=== PATIENT | female | born 1955 | race Caucasian/White ===

== ENCOUNTER 2017-04-14 17:35 | Emergency (ER) | payer OTHER ==
[2017-04-14 17:43] VITALS: BP 134/73; PULSE 104; RESP 18; TEMP 97.9
[2017-04-14] MEDS ORDERED: ACETAMINOPHEN TAB 500 MG TAB PO STA (17:53)
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
== END 2017-04-14 18:35 | disposition home or self-care (01) ==
LOC: EC 17:35
DX: S41.112A Laceration without foreign body of left upper arm, initial encounter (principal); S41.111A Laceration without foreign body of right upper arm, initial encounter; S01.511A Laceration without foreign body of lip, initial encounter; S09.90XA Unspecified injury of head, initial encounter; I48.91 Unspecified atrial fibrillation; E11.9 Type 2 diabetes mellitus without complications; Z79.4 Long term (current) use of insulin; Z79.899 Other long term (current) drug therapy; Z88.5 Allergy status to narcotic agent; Z88.8 Allergy status to other drugs, medicaments and biological substances; Y04.8XXA Assault by other bodily force, initial encounter
CPT/HCPCS: 70450; 99284

== ENCOUNTER 2017-06-07 06:14 | Day surgery (SDC) | payer OTHER ==
[2017-06-01 12:16] VITALS: BMI 32.1
[~2017-06-07 06:14] MED LIST: HYDROmorphone 1 MG/ML 1 ML SYRINGE IVP PRN; LACTATED RINGERS 1,000 ML IV SCH
[2017-06-07 07:21] VITALS: TEMP 97.2
[2017-06-07] MEDS ORDERED: LACTATED RINGERS 1,000 ML IV ONE (07:24)
[2017-06-07 07:30] LABS: Glucose,Whole Blood 109 mg/dL (75-99)
[2017-06-07] MEDS ORDERED: PROPOFOL 10 MG/ML 20 ML VIAL IV ONE (07:49)
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
--- NOTE | 2017-06-07 08:13 | P.OP ---
Date of Procedure: 06/07/17 Preoperative Diagnosis: Diarrhea, abdominal pain Postoperative Diagnosis: Normal colonoscopy Random rectal biopsy Procedure(s) Performed: Colonoscopy Implants: Anesthesia: ZION Surgeon: Ender Nelson Pathology: other (Rectum) Condition: stable Disposition: PACU Indications for Procedure: Operative Findings: Description of Procedure: The patient's placed on the endoscopy table lateral position she received IV sedation. Digital rectal exam was performed which revealed no abnormalities. The flexible colonoscope was then placed patient anus passed throughout the entire colon. The ileocecal valve was visualized. The cecum, ascending and transverse colon appeared normal. The descending and; appeared normal. Scope was then brought back the rectum and this question was information mucosa looked mildly irritated. A biopsies performed. The scope was then withdrawn remainder the rectum appeared normal. Scope was withdrawn for patient.
[2017-06-07 08:39] VITALS: RESP 16
[2017-06-07 08:48] VITALS: BP 108/74; PULSE 51
[2017-06-07 09:05] LABS: Glucose,Whole Blood 91 mg/dL (75-99)
== END 2017-06-07 09:27 | disposition home or self-care (01) ==
LOC: ORWHC2ENDO 06:14
PROVIDERS: ATTEND Surgery
DX: R19.7 Diarrhea, unspecified (principal); R10.9 Unspecified abdominal pain; I48.91 Unspecified atrial fibrillation; E11.9 Type 2 diabetes mellitus without complications; Z79.4 Long term (current) use of insulin; Z79.899 Other long term (current) drug therapy; Z88.5 Allergy status to narcotic agent; Z91.09 Other allergy status, other than to drugs and biological substances
CPT/HCPCS: 88305; 45380; J2704

== ENCOUNTER → 2018-09-25 | Outpatient (CLI) | payer OTHER ==
--- NOTE | 2018-09-27 08:51 | MM ---
Reason for exam: screening (asymptomatic). Last mammogram was performed 5 years and 1 month ago. History: Patient is postmenopausal. Physical Findings: A clinical breast exam by your physician is recommended on an annual basis and results should be correlated with mammographic findings. MG Screening Mammo w CAD Bilateral CC and MLO view(s) were taken. Prior study comparison: August 26, 2013, bilateral digital screening mammo w/CAD. There are scattered fibroglandular densities. There is chronic nodularity in the right breast. Benign secreotry calcifications bilaterally. No significant changes when compared with prior studies. ASSESSMENT: Benign, BI-RAD 2 RECOMMENDATION: Routine screening mammogram of both breasts in 1 year.
== END | disposition home or self-care (01) ==
LOC: RADMAMWWP 16:11
PROVIDERS: ATTEND Family Medicine
DX: Z12.31 Encounter for screening mammogram for malignant neoplasm of breast (principal)
CPT/HCPCS: 77067

== ENCOUNTER 2019-10-09 13:39 | Inpatient (IN) | payer OTHER ==
[2019-10-09] MEDS ORDERED: SODIUM CHLORIDE 0.9% 1,000 ML IV ONE (13:54)
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
[2019-10-09 14:24] LABS: Glucose,Whole Blood 277 mg/dL (75-99)
[2019-10-09 14:51] LABS: Appearance,Urine Clear (Clear); Bilirubin,Urine Negative (Negative); Blood,Urine Negative (Negative); Color,Urine Yellow; Glucose,Urine (UA) 4+ (Negative); Ketones,Urine Negative (Negative); Leukocyte Esterase,Urine Trace (Negative); Mucus,Urine Rare /hpf; Nitrite,Urine Negative (Negative); PH, Urine 5.5 (5.0-8.0); Protein,Urine Negative (Negative); RBC,Urine <1 /hpf (0-5); Specific Gravity,Urine 1.014 (1.001-1.035); Squamous Epithelial Cell,Urine <1 /hpf (0-4); Urobilinogen,Urine <2.0 mg/dL (<2.0); WBC,Urine 2 /hpf (0-5)
--- NOTE | 2019-10-09 14:55 | XR ---
EXAMINATION TYPE: XR chest 2V DATE OF EXAM: 10/09/2019 COMPARISON: Prior chest x-ray 04/09/2018 HISTORY: Difficulty breathing, dizziness and vomiting TECHNIQUE: Frontal and lateral views of the chest are obtained. FINDINGS: The patient is rotated. There are overlying cardiac leads. Surgical clips are present right upper quadrant. The aorta is dense. There is increased attenuation present at the probable left lung base. No pneumothorax or pleural effusion. Heart size is normal. IMPRESSION: Possible left lower lobe pneumonia.
[2019-10-09 15:34] LABS: Basophils # (A) 0.2 k/uL (0-0.2); Basophils % (A) 1 %; Eosinophils # (A) 0.1 k/uL (0-0.7); Eosinophils % (A) 1 %; HCT 45.9 % (34.0-46.0); HGB 14.7 gm/dL (11.4-16.0); Lymphocytes # (A) 0.4 k/uL (1.0-4.8); Lymphocytes % (A) 2 %; MCH 27.6 pg (25.0-35.0); MCHC 32.1 g/dL (31.0-37.0); MCV 85.9 fL (80.0-100.0); Mean Platelet Volume 8.1; Monocytes # (A) 0.7 k/uL (0-1.0); Monocytes % (A) 4 %; Neutrophils % (A) 93 %; Platelet Count 306 k/uL (150-450); RBC 5.34 m/uL (3.80-5.40); WBC 20.4 k/uL (3.8-10.6)
[2019-10-09] MEDS ORDERED: cefTRIAXone IN SWFI 1,000 MG/10 ML SYRINGE IVP STA (15:37)
[2019-10-09 15:44] LABS: ALT 19 U/L (4-34); AST 29 U/L (14-36); African American GFR (CKD) >90 (>60 ml/min/1.73 sqM); Albumin 3.6 g/dL (3.5-5.0); Alkaline Phosphatase 83 U/L (38-126); Anion Gap 9 mmol/L; Blood Urea Nitrogen 7 mg/dL (7-17); Calcium 9.4 mg/dL (8.4-10.2); Carbon Dioxide 22 mmol/L (22-30); Chloride 104 mmol/L (98-107); Glucose 243 mg/dL (74-99); Non-African American GFR(CKD) >90 (>60 ml/min/1.73 sqM); Sodium 135 mmol/L (137-145); Total Bilirubin 0.5 mg/dL (0.2-1.3); Total Protein 6.5 g/dL (6.3-8.2)
[2019-10-09] MEDS ORDERED: AZITHROMYCIN 500 MG in SODIUM CHLORIDE 0.9% 250 ML IVPB STA (16:19)
[2019-10-09] MEDS ORDERED: PNEUMONIA PROTOCOL UTILIZED 1 EACH MISC PO PRN (16:19)
[2019-10-09 20:07] LABS: Glucose,Whole Blood 166 mg/dL (75-99)
[2019-10-09] MEDS: INSULIN DETEMIR (LEVEMIR) 100 UNIT/ML SYR SQ SCH (23:21)
[2019-10-09] MEDS: TOPIRAMATE 100 MG TAB PO SCH (23:21)
[2019-10-09] MEDS: metFORMIN 500 MG TAB PO SCH (23:21)
[2019-10-10 06:58] LABS: Glucose,Whole Blood 69 mg/dL (75-99)
[2019-10-10 07:21] LABS: Glucose,Whole Blood 59 mg/dL (75-99)
[2019-10-10] MEDS ORDERED: INSULIN ASPART (NovoLOG) 100 UNIT/ML VIAL SQ SCH (07:30)
[2019-10-10 07:45] LABS: Glucose,Whole Blood 79 mg/dL (75-99)
[2019-10-10] MEDS: metFORMIN 500 MG TAB PO SCH ×2 (08:23→20:37)
[2019-10-10] MEDS: TOPIRAMATE 100 MG TAB PO SCH ×2 (08:39→20:37)
--- NOTE | 2019-10-10 10:46 | XR ---
EXAMINATION TYPE: XR chest 2V DATE OF EXAM: 10/10/2019 COMPARISON: Chest x-ray 10/09/2019 HISTORY: Pneumonia TECHNIQUE: Frontal and lateral views of the chest are obtained. FINDINGS: Airspace disease persists at the right lung base. No evident pneumothorax or pleural effus ion. Aorta is dense. Heart size is stable. Bone mineralization unchanged. IMPRESSION: Correlate for right lower lobe pneumonia
[2019-10-10 11:27] LABS: Glucose,Whole Blood 185 mg/dL (75-99)
[2019-10-10] MEDS: INSULIN ASPART (NovoLOG) 100 UNIT/ML VIAL SQ SCH ×3 (11:46→20:38)
[2019-10-10] MEDS ORDERED: IPRATROPIUM-ALBUTEROL 3 ML NEB INHALATION PRN (16:50)
[2019-10-10] MEDS: AZITHROMYCIN 500 MG TAB PO SCH (16:55)
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
[2019-10-10] MEDS: PANTOPRAZOLE 40 MG/10 ML VIAL IVP SCH (16:58)
[2019-10-10 17:20] LABS: Glucose,Whole Blood 73 mg/dL (75-99)
[2019-10-10 19:52] LABS: Glucose,Whole Blood 225 mg/dL (75-99)
[2019-10-10] MEDS: INSULIN DETEMIR (LEVEMIR) 100 UNIT/ML SYR SQ SCH (20:38)
[2019-10-10] MEDS: IPRATROPIUM-ALBUTEROL 3 ML NEB INHALATION SCH (21:27)
[2019-10-11 02:16] LABS: Glucose,Whole Blood 154 mg/dL (75-99)
[2019-10-11 06:51] LABS: Glucose,Whole Blood 68 mg/dL (75-99)
[2019-10-11 07:16] LABS: Glucose,Whole Blood 101 mg/dL (75-99)
[2019-10-11] MEDS: INSULIN ASPART (NovoLOG) 100 UNIT/ML VIAL SQ SCH ×4 (07:21→20:49)
[2019-10-11] MEDS: PANTOPRAZOLE 40 MG/10 ML VIAL IVP SCH (07:21)
[2019-10-11] MEDS: metFORMIN 500 MG TAB PO SCH ×2 (07:22→20:49)
[2019-10-11] MEDS: TOPIRAMATE 100 MG TAB PO SCH ×2 (07:23→20:49)
[2019-10-11 07:32] LABS: African American GFR (CKD) >90 (>60 ml/min/1.73 sqM); Anion Gap 5 mmol/L; Blood Urea Nitrogen 5 mg/dL (7-17); Calcium 8.7 mg/dL (8.4-10.2); Carbon Dioxide 22 mmol/L (22-30); Chloride 112 mmol/L (98-107); Glucose 82 mg/dL (74-99); Non-African American GFR(CKD) >90 (>60 ml/min/1.73 sqM); Potassium 3.8 mmol/L (3.5-5.1); Sodium 139 mmol/L (137-145)
[2019-10-11 07:50] LABS: Basophils % (A) 0 %; Eosinophils # (A) 0.1 k/uL (0-0.7); Eosinophils % (A) 1 %; HGB 11.8 gm/dL (11.4-16.0); Hypochromasia Slight; Lymphocytes # (A) 0.9 k/uL (1.0-4.8); Lymphocytes % (A) 7 %; MCH 28.3 pg (25.0-35.0); MCHC 32.8 g/dL (31.0-37.0); MCV 86.5 fL (80.0-100.0); Mean Platelet Volume 7.7; Monocytes # (A) 0.6 k/uL (0-1.0); Monocytes % (A) 5 %; Neutrophils # (A) 10.3 k/uL (1.3-7.7); Neutrophils % (A) 86 %; Platelet Count 257 k/uL (150-450); RBC 4.17 m/uL (3.80-5.40); RDW 14.5 % (11.5-15.5); WBC 12.1 k/uL (3.8-10.6)
[2019-10-11] MEDS: IPRATROPIUM-ALBUTEROL 3 ML NEB INHALATION SCH ×4 (08:59→19:54)
[2019-10-11 11:13] LABS: Glucose,Whole Blood 325 mg/dL (75-99)
[2019-10-11 11:17] LABS: Hemoglobin A1C 10.7 % (4.0-6.0)
[2019-10-11 12:49] VITALS: BMI 27.9
[2019-10-11] MEDS: AZITHROMYCIN 500 MG TAB PO SCH (16:14)
[2019-10-11 17:18] LABS: Glucose,Whole Blood 251 mg/dL (75-99)
[2019-10-11] MEDS ORDERED: methylPREDNISolone SOD SUCCI 125 MG/2 ML VIAL IV SCH (18:00)
[2019-10-11] MEDS: BUDESONIDE 0.5 MG/2 ML NEBU INHALATION SCH (19:54)
[2019-10-11 20:40] LABS: Glucose,Whole Blood 248 mg/dL (75-99)
[2019-10-11] MEDS: FAMOTIDINE 20 MG/2 ML VIAL IV SCH (20:48)
[2019-10-11] MEDS: HEPARIN SODIUM,PORCINE 5,000 UNIT/ML 1 ML VIAL SQ SCH (20:49)
[2019-10-11] MEDS: INSULIN DETEMIR (LEVEMIR) 100 UNIT/ML SYR SQ SCH (20:49)
--- NOTE | 2019-10-11 22:35 | CONS ---
CONSULTATION Tiana Elizondo is a 64-year-old female who presented to the ED at [facility] with a history of cough. She had been exposed to a toddler who may have had the flu. When she came to the ER, she had a chest x-ray done which showed evidence of lower zone infiltrate consistent with pneumonia. She also had a nonproductive cough. She has a history of diabetes mellitus and her blood sugars at home were over 500. She denied any discrete fever when I asked about it. She is doing significantly better today compared to yesterday. She has no chest pain. PAST MEDICAL HISTORY: Positive for diabetes mellitus, seizure disorder, arthritis, previous hysterectomy, tonsillectomy. No clear history of asthma or COPD. SOCIAL HISTORY: Patient is a never smoker. Does not drink alcohol excessively. FAMILY HISTORY: Positive for cancer in her father. MEDICATIONS: Prior to admission were insulin, Topamax, and metformin. ALLERGIC: TO CODEINE AND IODINE. PHYSICAL EXAMINATION: She was lying in bed. Respiratory rate is 18, pulse rate 91, O2 saturation on 2 L by nasal cannula is 95%. Blood pressure is 104/59, temperature is 98.8. When she came to the ER, her T-max had been 100 degrees Fahrenheit. HEENT: Unremarkable. Chest reveals scattered crackles in the bases. No wheeze. Cardiovascular system is S1, S2. Abdomen is soft. There is no pedal edema. Chest x-ray shows evidence of airspace disease in the right lung base. LABS: Reveal a white count of 12.1, hemoglobin of 11.8 with 10.3 1000 neutrophils. Sodium 139, potassium 3.8, chloride 112, bicarb 22, BUN 5, creatinine 0.55. IMPRESSION: At this time: 1. Right lower lobe pneumonia. 2. Diabetes mellitus. At this point in time, keep her on Rocephin and azithromycin. Add inhaled steroid. Continue bronchodilators. If she starts to wheeze, she may require a short course of steroids. Continue her on insulin and her antiseizure medications. She was counseled regarding her condition and this approach. MMODL / IJN: [id number] /
[2019-10-12 02:03] LABS: Glucose,Whole Blood 169 mg/dL (75-99)
[2019-10-12 07:07] LABS: Glucose,Whole Blood 81 mg/dL (75-99)
--- NOTE | 2019-10-12 08:23 | PN ---
PROGRESS NOTE SUBJECTIVE: 64-year-old white female, community-acquired pneumonia, tracheobronchitis, COPD exacerbation. Cardiovascular S1-S2. Lungs scattered wheeze and rhonchi. Hematology negative Homans. Psych fair mood and affect. ASSESSMENT: 1. Chronic obstructive pulmonary disease exacerbation. 2. Community-acquired pneumonia. 3. Acute hypoxemic respiratory distress. Continue with current IV antibiotics, IV steroids, updraft treatments. Possible discharge home in next 24 to 48 hours. MMODL / IJN: [id number] /
[2019-10-12] MEDS: BUDESONIDE 0.5 MG/2 ML NEBU INHALATION SCH (08:31)
[2019-10-12] MEDS: IPRATROPIUM-ALBUTEROL 3 ML NEB INHALATION SCH ×2 (08:31→11:57)
[2019-10-12] MEDS: INSULIN ASPART (NovoLOG) 100 UNIT/ML VIAL SQ SCH ×2 (08:39→12:35)
[2019-10-12] MEDS ORDERED: PANTOPRAZOLE 40 MG TABLET PO SCH (09:00)
[2019-10-12] MEDS: FAMOTIDINE 20 MG/2 ML VIAL IV SCH (09:20)
[2019-10-12] MEDS: HEPARIN SODIUM,PORCINE 5,000 UNIT/ML 1 ML VIAL SQ SCH (09:20)
[2019-10-12] MEDS: TOPIRAMATE 100 MG TAB PO SCH (09:20)
[2019-10-12] MEDS: metFORMIN 500 MG TAB PO SCH (09:20)
[2019-10-12 11:05] LABS: Glucose,Whole Blood 310 mg/dL (75-99)
[2019-10-12 11:52] VITALS: BP 114/69; RESP 18; TEMP 97.8
[2019-10-12 12:07] VITALS: PULSE 96
--- NOTE | 2019-10-12 17:36 | PN ---
PROGRESS NOTE DATE OF SERVICE: October 12, 2019. She was hemodynamically stable. She is less short of breath. She does not have much of a cough. By the chest is clear. Cardiovascular is S1, S2. Abdomen is soft. There is no edema. IMPRESSION: At this time: Community-acquired pneumonia. Increase her activity level and discharge planning on antibiotics. care. MMODL / IJN: [id number] /
== END 2019-10-12 12:50 | disposition home or self-care (01) | DRG 193 ==
LOC: EC 13:39 → INTOOBSV 16:19 → 5NMEDONC 16:19 → OBSVTOIN 10-11 15:24
PROVIDERS: ADMIT Family Medicine; ATTEND Family Medicine
DX: J18.9 Pneumonia, unspecified organism (principal); J96.01 Acute respiratory failure with hypoxia; J44.0 Chronic obstructive pulmonary disease with (acute) lower respiratory infection; J44.1 Chronic obstructive pulmonary disease with (acute) exacerbation; M19.90 Unspecified osteoarthritis, unspecified site; I48.91 Unspecified atrial fibrillation; G40.909 Epilepsy, unspecified, not intractable, without status epilepticus; E11.65 Type 2 diabetes mellitus with hyperglycemia; F32.9 Major depressive disorder, single episode, unspecified; Z88.5 Allergy status to narcotic agent; Z88.8 Allergy status to other drugs, medicaments and biological substances; Z79.4 Long term (current) use of insulin; Z79.1 Long term (current) use of non-steroidal anti-inflammatories (NSAID); Z90.49 Acquired absence of other specified parts of digestive tract; Z79.899 Other long term (current) drug therapy; Z90.710 Acquired absence of both cervix and uterus; Z90.89 Acquired absence of other organs; Z90.722 Acquired absence of ovaries, bilateral; Z90.79 Acquired absence of other genital organ(s); Z98.890 Other specified postprocedural states; Z80.9 Family history of malignant neoplasm, unspecified
CPT/HCPCS: 36415; 71046; 80048; 80053; 81001; 82009; 83036; 83605; 85025; 85379; 87040; 87502; 93005; 94640; 94760; 96361; 96365; 96366; 96375; 99285

== ENCOUNTER 2019-12-27 05:53 | Inpatient (IN) | payer OTHER ==
[2019-12-27] MEDS ORDERED: ONDANSETRON 4 MG/2 ML VIAL IVP STA (06:26)
[2019-12-27] MEDS ORDERED: HYDROmorphone 0.5 MG/0.5 ML SYRINGE IVP STA (06:26)
--- NOTE | 2019-12-27 06:29 | ED ---
Fall HPI - General Chief Complaint: Fall Stated Complaint: Fall,Leg Pain Time Seen by Provider: 12/27/19 06:05 Source: patient, RN notes reviewed Mode of arrival: ambulatory Limitations: no limitations - History of Present Illness Initial Comments: This a 64-year-old female presents emergency department via EMS chief complaint of left hip, left leg pain. Patient states that she tripped over a pillow falling into the wall. Patient states she has severe left hip and left thigh pain. Patient denies any significant head injury no loss conscious no current headache, neck pain, upper extremity or back pain. Patient states she's had no prior orthopedic surgeries. Patient states pain is 910 at this time. Patient has not taken anything for discomfort. - Related Data Home Medications Medication Instructions Recorded Confirmed Insulin Glargine [Lantus] 25 unit SQ HS 04/14/17 10/09/19 Insulin Lispro [Admelog] 7 unit SQ QID 10/09/19 10/09/19 Topiramate [Topamax] 100 mg PO BID 10/09/19 10/09/19 metFORMIN HCL [Glucophage] 500 mg PO BID 10/09/19 10/09/19 Allergies Allergy/AdvReac Type Severity Reaction Status Date / Time codeine Allergy Nausea & Verified 12/27/19 06:00 Vomiting iodine Allergy Anaphylaxis Verified 12/27/19 06:00 Iodine and Iodide Containing Allergy Anaphylaxis Verified 12/27/19 06:00 Produc Review of Systems ROS Statement: Those systems with pertinent positive or pertinent negative responses have been documented in the HPI. ROS Other: All systems not noted in ROS Statement are negative. Past Medical History Past Medical History: Diabetes Mellitus, Seizure Disorder Additional Past Medical History / Comment(s): SEIZURE 05/23/17, ELECTROLYTES WERE ABN. ONGOING DIARRHEA, W/ LOW K+. PAIN IN JOINTS. History of Any Multi-Drug Resistant Organisms: None Reported Past Surgical History: Cholecystectomy, Hysterectomy, Tonsillectomy Additional Past Surgical History / Comment(s): BSO. Past Anesthesia/Blood Transfusion Reactions: Previous Problems w/ Anesthesia, Motion Sickness Additional Past Anesthesia/Blood Transfusion Reaction / Comment(s): AWAKENED DURING SURGERY X1. Past Psychological History: Depression Smoking Status: Never smoker Past Alcohol Use History: None Reported Past Drug Use History: None Reported - Past Family History Father Family Medical History: Cancer General Exam Limitations: no limitations General appearance: alert, in no apparent distress Head exam: Present: atraumatic, normocephalic, normal inspection Eye exam: Present: normal appearance, PERRL, EOMI. Absent: scleral icterus, conjunctival injection, periorbital swelling ENT exam: Present: normal exam, normal oropharynx, mucous membranes moist Neck exam: Present: normal inspection, full ROM. Absent: tenderness, meningismus, lymphadenopathy Respiratory exam: Present: normal lung sounds bilaterally. Absent: respiratory distress, wheezes, rales, rhonchi, stridor Cardiovascular Exam: Present: regular rate, normal rhythm, normal heart sounds. Absent: systolic murmur, diastolic murmur, rubs, gallop, clicks Extremities exam: Present: other (Left hip left upper leg there is moderate tenderness palpation, no obvious deformity there is very limited range of motion secondary pain leg is neurovascularly intact) Neurological exam: Present: alert, oriented X3, CN II-XII intact, reflexes normal. Absent: motor sensory deficit Skin exam: Present: warm, dry, intact, normal color. Absent: rash Course Vital Signs 12/27/19 05:57 Temperature 98.1 F Pulse Rate 89 Respiratory 20 Rate Blood Pressure 132/85 O2 Sat by Pulse 100 Oximetry Medical Decision Making - Medical Decision Making Case discussed with Dr. Vazquez who accepts admission will consult to Dr. Arredondo for medical clearance. Disposition Clinical Impression: Fall, Closed left hip fracture Disposition: ADMITTED IP TO THIS [facility] Condition: Fair Referrals: Manuel Castillo MD [Primary Care Provider] - 1-2 days
--- NOTE | 2019-12-27 06:44 | XR ---
EXAMINATION TYPE: XR pelvis AP view DATE OF EXAM: 12/27/2019 COMPARISON: NONE HISTORY: Fall. Pain. TECHNIQUE: FINDINGS: There is acute subcapital slightly impacted fracture left femur. There is no dislocation. P elvic ring is intact. IMPRESSION: Acute fracture of the subcapital left femur.
--- NOTE | 2019-12-27 06:45 | XR ---
EXAMINATION TYPE: XR chest 1V portable DATE OF EXAM: 12/27/2019 COMPARISON: 10/10/2019 HISTORY: Trauma. Pain. TECHNIQUE: Single view FINDINGS: Heart is normal. Lungs are clear of infiltrate. There is no pleural effusion. Costophrenic angles are clear. Thoracic aorta is atheromatous. IMPRESSION: No active cardiopulmonary disease. Normal heart. There is clearing of the mild atelectasi s right lung base compared to old exam.
--- NOTE | 2019-12-27 06:47 | XR ---
EXAMINATION TYPE: XR femur LT DATE OF EXAM: 12/27/2019 COMPARISON: NONE HISTORY: Pain TECHNIQUE: 4 views FINDINGS: There is acute impacted subcapital fracture left femur. Knee joint appears intact. There is vascular calcification. Acetabulum is intact. IMPRESSION: Acute subcapital fracture left femur.
[2019-12-27] MEDS ORDERED: ONDANSETRON 4 MG/2 ML VIAL IVP PRN (06:50)
[2019-12-27] MEDS ORDERED: NALOXONE 0.4 MG/ML 1 ML VIAL IV PRN (06:50)
[2019-12-27] MEDS ORDERED: HYDROmorphone 1 MG/ML 1 ML SYRINGE IVP PRN (06:50)
[2019-12-27 07:15] LABS: Basophils % (A) 0 %; Eosinophils # (A) 0.1 k/uL (0-0.7); Eosinophils % (A) 1 %; HCT 39.5 % (34.0-46.0); HGB 12.7 gm/dL (11.4-16.0); Lymphocytes # (A) 0.8 k/uL (1.0-4.8); Lymphocytes % (A) 7 %; MCH 27.5 pg (25.0-35.0); MCHC 32.2 g/dL (31.0-37.0); MCV 85.5 fL (80.0-100.0); Mean Platelet Volume 8.1; Monocytes # (A) 0.7 k/uL (0-1.0); Monocytes % (A) 6 %; Neutrophils # (A) 9.6 k/uL (1.3-7.7); Neutrophils % (A) 86 %; Platelet Count 236 k/uL (150-450); RBC 4.63 m/uL (3.80-5.40); RDW 14.9 % (11.5-15.5); WBC 11.2 k/uL (3.8-10.6)
[2019-12-27 07:27] LABS: ALT 38 U/L (4-34); AST 50 U/L (14-36); African American GFR (CKD) >90 (>60 ml/min/1.73 sqM); Albumin 3.5 g/dL (3.5-5.0); Alkaline Phosphatase 103 U/L (38-126); Anion Gap 6 mmol/L; Blood Urea Nitrogen 11 mg/dL (7-17); Calcium 9.6 mg/dL (8.4-10.2); Carbon Dioxide 22 mmol/L (22-30); Chloride 110 mmol/L (98-107); Glucose 156 mg/dL (74-99); Non-African American GFR(CKD) >90 (>60 ml/min/1.73 sqM); Potassium 3.6 mmol/L (3.5-5.1); Sodium 138 mmol/L (137-145); Total Bilirubin 0.4 mg/dL (0.2-1.3); Total Protein 6.2 g/dL (6.3-8.2)
[2019-12-27 07:40] LABS: INR 0.9 (<1.2); Prothrombin Time 9.3 sec (9.0-12.0)
--- NOTE | 2019-12-27 07:55 | CT ---
EXAMINATION TYPE: CT hip LT wo con DATE OF EXAM: 12/27/2019 COMPARISON: Pelvic and left femur x-ray from earlier today. HISTORY: Trip and fall injury last night. Left hip pain. CT DLP: 1078.6 mGycm Automated exposure control for dose reduction was used. FINDINGS: As suspected on x-rays there is confirmation of acute displaced comminuted subcapital fracture left p roximal femur. No joint dislocation. Moderate joint space loss is present. There are 2 left pelvic anterior wall hernias containing fat and tiny mesenteric vessels. Mild to mod erate distention of bladder. Vascular calcification is seen. IMPRESSION: As above, confirmation of acute comminuted minimally displaced subcapital fracture left p roximal femur.
[2019-12-27 08:05] LABS: Partial Thromboplastin Time 21.3 sec (22.0-30.0)
[2019-12-27 09:06] LABS: Glucose,Whole Blood 162 mg/dL (75-99)
[2019-12-27] MEDS: INSULIN ASPART (NovoLOG) 100 UNIT/ML VIAL SQ SCH ×4 (09:29→21:51)
[2019-12-27] MEDS: HYDROmorphone 0.5 MG/0.5 ML SYRINGE IVP PRN ×3 (09:30→19:39)
--- NOTE | 2019-12-27 10:11 | P.HPOR ---
History of Present Illness H&P Date: 12/27/19 Chief Complaint: Left hip pain. Status post fall. This is a 64-year-old female who presented to the emergency department early this morning with complaint of left hip pain. The patient states that she tripped over her pillow and fell into the wall at home. She states that she did have immediate hip pain but was able to ambulate. She states that she thought she just had a sprain of her hip. He became increasingly difficult to ambulate over the following few hours. She then called her daughter to bring her to the hospital. She states that she did bump her head when she fell and has a bit of a headache but no neck pain. On exam and x-ray she is noted to have a com minuted femoral neck fracture of the left hip. She is admitted to our service for surgical intervention and care. The patient denies any history of cancer or metastatic disease. She is diabetic and has history of epilepsy with grand mal seizure. The patient works as a [employer] WORK[employer]. Past Medical History Past Medical History: Diabetes Mellitus, Seizure Disorder Additional Past Medical History / Comment(s): SEIZURE 05/23/17, ELECTROLYTES WERE ABN. ONGOING DIARRHEA, W/ LOW K+. PAIN IN JOINTS. History of Any Multi-Drug Resistant Organisms: None Reported Past Surgical History: Cholecystectomy, Hysterectomy, Tonsillectomy Additional Past Surgical History / Comment(s): BSO. Past Anesthesia/Blood Transfusion Reactions: Previous Problems w/ Anesthesia, Motion Sickness Additional Past Anesthesia/Blood Transfusion Reaction / Comment(s): AWAKENED DURING SURGERY X1. Past Psychological History: Depression Smoking Status: Never smoker Past Alcohol Use History: None Reported Past Drug Use History: None Reported - Past Family History Father Family Medical History: Cancer Medications and Allergies Home Medications Medication Instructions Recorded Confirmed Type Insulin Glargine [Lantus] 25 unit SQ HS 04/14/17 10/09/19 History Insulin Lispro [Admelog] 7 unit SQ QID 10/09/19 10/09/19 History Topiramate [Topamax] 100 mg PO BID 10/09/19 10/09/19 History metFORMIN HCL [Glucophage] 500 mg PO BID 10/09/19 10/09/19 History Allergies Allergy/AdvReac Type Severity Reaction Status Date / Time codeine Allergy Nausea & Verified 12/27/19 06:00 Vomiting iodine Allergy Anaphylaxis Verified 12/27/19 06:00 Iodine and Iodide Containing Allergy Anaphylaxis Verified 12/27/19 06:00 Produc Physical Examination This is a pleasant 64-year-old female in no acute distress. She is alert and oriented 3. Exam of the head neck reveal no obvious deformity. She has full cervical spine motion without difficulty or pain. There is no tenderness to the cervical spine or paraspinal musculature. Exam of the upper extremities reveals no obvious deformity. She has full shoulder, elbow, wrist and finger motion bilaterally. Neurovascular status to the upper extremities is intact. Exam of the lower extremities reveals shortening and external rotation to the left leg. There is pain with any motion of the left hip. She has full foot and ankle motion bilaterally. Neurovascular status to the lower extremities is intact. Results X-ray of the pelvis and hip as well as computed tomography scan of the left hip reveal a comminuted fracture of the femoral neck. There is suspicion for a pathologic fracture. - Labs Labs: Abnormal Lab Results - Last 24 Hours (Table) 12/27/19 12/27/19 12/27/19 Range/Units 07:02 07:02 07:02 WBC 11.2 H (3.8-10.6) k/uL Neutrophils # 9.6 H (1.3-7.7) k/uL Lymphocytes # 0.8 L (1.0-4.8) k/uL APTT 21.3 L (22.0-30.0) sec Chloride 110 H (98-107) mmol/L Glucose 156 H (74-99) mg/dL POC Glucose (mg/dL) (75-99) mg/dL AST 50 H (14-36) U/L ALT 38 H (4-34) U/L Total Protein 6.2 L (6.3-8.2) g/dL 12/27/19 Range/Units 09:03 WBC (3.8-10.6) k/uL Neutrophils # (1.3-7.7) k/uL Lymphocytes # (1.0-4.8) k/uL APTT (22.0-30.0) sec Chloride (98-107) mmol/L Glucose (74-99) mg/dL POC Glucose (mg/dL) 162 H (75-99) mg/dL AST (14-36) U/L ALT (4-34) U/L Total Protein (6.3-8.2) g/dL H & H 12/27/19 Range/Units 07:02 Hgb 12.7 (11.4-16.0) gm/dL Hct 39.5 (34.0-46.0) % Coagulation 12/27/19 Range/Units 07:02 INR 0.9 (<1.2) Result Diagrams: 12/27/19 07:02 12/27/19 07:02 Assessment and Plan (1) Diabetes Current Visit: Yes Status: Acute Code(s): E11.9 - TYPE 2 DIABETES MELLITUS WITHOUT COMPLICATIONS SNOMED Code(s): 96134731 (2) Seizure disorder Current Visit: Yes Status: Acute Code(s): G40.909 - EPILEPSY, UNSP, NOT INTRACTABLE, WITHOUT STATUS EPILEPTICUS SNOMED Code(s): 153895154 (3) Closed left hip fracture Current Visit: Yes Status: Acute Code(s): S72.002A - FRACTURE OF UNSP PART OF NECK OF LEFT FEMUR, INIT SNOMED Code(s): 670566016 (4) Fall Current Visit: Yes Status: Acute Code(s): W19.XXXA - UNSPECIFIED FALL, INITIAL ENCOUNTER SNOMED Code(s): 3443215 Plan: The clinical and x-ray findings of been discussed with the patient. It is recommended she undergo hemiarthroplasty versus total hip arthroplasty. I have discussed the case with Dr. Vazquez and Dr. Castillo. It is recommended that she have CT of the chest abdomen and pelvis as well as a bone scan to rule out metastatic disease. We are planning surgery for tomorrow morning if cleared medically. The patient may possibly require inpatient rehab postoperatively.
[2019-12-27 11:52] LABS: Glucose,Whole Blood 212 mg/dL (75-99)
[2019-12-27 13:17] LABS: Amorphous Sediment,Urine Rare /hpf; Appearance,Urine Clear (Clear); Bilirubin,Urine Negative (Negative); Blood,Urine Negative (Negative); Color,Urine Light Yellow; Glucose,Urine (UA) 2+ (Negative); Ketones,Urine Negative (Negative); Leukocyte Esterase,Urine Large (Negative); Nitrite,Urine Negative (Negative); Protein,Urine Negative (Negative); RBC,Urine 1 /hpf (0-5); Specific Gravity,Urine 1.007 (1.001-1.035); Squamous Epithelial Cell,Urine 3 /hpf (0-4); Urobilinogen,Urine <2.0 mg/dL (<2.0); WBC,Urine 21 /hpf (0-5)
--- NOTE | 2019-12-27 13:56 | CT ---
EXAMINATION TYPE: CT ChestAbdPelvis wo con DATE OF EXAM: 12/27/2019 COMPARISON: CT left hip earlier today. HISTORY: Rule out metastatic disease. New acute left hip fracture. Diffuse pain. CT DLP: 1008.9 mGycm. Automated Exposure Control for Dose Reduction was Utilized. TECHNIQUE: CT scan of the thorax, abdomen and pelvis is performed without oral or IV contrast. FINDINGS: LUNGS: Left greater than right bibasilar linear scarring and/or atelectasis. No suspicious nodules or masses. There is no pleural effusion or pneumothorax seen. The tracheobronchial tree is patent. MEDIASTINUM: There are no definitive greater than 1 cm hilar or mediastinal lymph nodes. Slightly sub optimal without IV contrast Trace pericardial effusion is seen anterior inferior aspect. Mild cardio megaly. Coronary artery calcification is present which is noted marker for underlying coronary artery disease. LIVER/GB: Cholecystectomy clips are seen.. PANCREAS: No significant abnormality is seen. SPLEEN: Calcified 1.3 cm splenic artery aneurysm axial image 58. ADRENALS: No significant abnormality is seen. KIDNEYS: No renal stones or hydronephrosis is seen bilaterally. BOWEL: Suboptimal evaluation without enteric contrast. No suspicious small or large bowel dilatation is seen. GENITAL ORGANS: Slightly retroverted small size uterus consistent with patient's postmenopausal age. LYMPH NODES: No greater than 1cm abdominal or pelvic lymph nodes are appreciated. OSSEOUS STRUCTURES: There is redemonstration of acute comminuted displaced subcapital fracture left p roximal femur. Osseous structures are demineralized. No suspicious focal osseous lytic or sclerotic l esions identified. OTHER: There is redemonstration of ventral wall hernia in the pelvis anteriorly just left of midline containing fat and tiny mesenteric vessels. IMPRESSION: No suspicious mass or adenopathy to suggest primary malignancy.
--- NOTE | 2019-12-27 14:09 | NM ---
EXAMINATION TYPE: NM bone scan whole body DATE OF EXAM: 12/27/2019 COMPARISON: Same day whole body CT scan. HISTORY: Pain. Suspicious new fracture left hip. Delayed whole-body scanning was performed following the injection of 23.5 mCi Tc 99m MDP. Images acq uired 3 hours post injection. Whole body images are obtained in the anterior and posterior projection . FINDINGS: Slight S-shaped scoliosis of the spine. Mild prominence of bladder. Mild uptake bilateral k nee joint felt to reflect product of degenerative change. No suspicious radiotracer uptake to suggest osseous metastatic disease or other significant abnormality. IMPRESSION: As above.
[2019-12-27 16:59] LABS: Glucose,Whole Blood 226 mg/dL (75-99)
[2019-12-27 17:32] LABS: Hemoglobin A1C 12.1 % (4.0-6.0)
[2019-12-27 21:16] LABS: Glucose,Whole Blood 255 mg/dL (75-99)
[2019-12-27] MEDS: INSULIN DETEMIR (LEVEMIR) 100 UNIT/ML SYR SQ SCH (21:52)
[2019-12-27] MEDS: TOPIRAMATE 100 MG TAB PO SCH (21:52)
--- NOTE | 2019-12-27 23:35 | CONS ---
CONSULTATION 64-year-old white female admitted with left hip pain and left leg pain. She tripped over a pillow and fell into the wall. She had hip pain. CT scan in the ER showed a fracture in the left femoral head. Talked to orthopedic nurse practitioner who thinks it could be a pathologic fracture. Doing a cancer workup with bone scan and multiple CT. Pain is being controlled currently. MEDICINE: Home medications: Lantus 25 units subcu daily, 7 units subcu q.i.d., Topamax 100 mg b.i.d., metformin 500 b.i.d. ALLERGIES: CODEINE, IODINE. REVIEW OF SYSTEMS: Fourteen-point review of systems negative except for mentioned in HPI. PAST MEDICAL HISTORY: Seizure disorder, diabetes mellitus. SURGERIES: Cholecystectomy, hysterectomy, tonsillectomy. PAST PSYCH HISTORY: Some depression. She is a nonsmoker. FAMILY HISTORY: Father with cancer. PHYSICAL EXAM: Vital signs are reviewed. Cardiovascular S1, S2. LUNGS: Clear. GI soft. Hematology negative Homans. Musculoskeletal is palpation right and left hip trochanteric area. Psych: Fair mood, affect. Integument is within normal limits. EKG shows no ischemia. Temp 98, pulse 90 to 85, respiratory 18-20, blood pressure 132/85, O2 100% on room air. ASSESSMENT: 1. Fall, closed left hip fracture. 2. Diabetes mellitus. 3. Hypertension. 4. Obesity. Await for CT scans and bone scan to be done. She is cleared for surgery as far as I am concerned. She is medically stable. Keep on Accu-Chek protocol. MMODL / IJN: [id number] /
[2019-12-28] MEDS: HYDROmorphone 0.5 MG/0.5 ML SYRINGE IVP PRN ×2 (04:23→20:06)
[2019-12-28 07:01] LABS: Glucose,Whole Blood 65 mg/dL (75-99)
[2019-12-28 07:03] LABS: Glucose,Whole Blood 65 mg/dL (75-99)
[2019-12-28] MEDS ORDERED: DEXTROSE 50% SYRINGE 50 ML IVP ONE (07:12)
[2019-12-28] MEDS: INSULIN ASPART (NovoLOG) 100 UNIT/ML VIAL SQ SCH ×4 (07:23→20:57)
[2019-12-28] MEDS ORDERED: SODIUM CHLORIDE 0.9% 100 ML BAG ONE (08:02)
[2019-12-28] MEDS ORDERED: TRANEXAMIC ACID 1,000 MG/10 ML VIAL ONE (08:02)
[2019-12-28] MEDS ORDERED: PHENYLEPHRINE-0.9% NACL SYG 1 MG/10 ML SYRINGE ONE (08:02)
[2019-12-28] MEDS ORDERED: fentaNYL (PF) 50 MCG/ML 2 ML AMP ONE (08:02)
[2019-12-28] MEDS ORDERED: PROPOFOL 10 MG/ML 20 ML VIAL IV ONE (08:02)
[2019-12-28] MEDS ORDERED: MIDAZOLAM 2 MG/2 ML VIAL ONE (08:02)
[2019-12-28 08:07] LABS: Glucose,Whole Blood 112 mg/dL (75-99)
[2019-12-28] MEDS ORDERED: LACTATED RINGERS 1,000 ML IV ONE ×2 (08:12→10:14)
[2019-12-28] MEDS ORDERED: TRANEXAMIC ACID 1,000 MG/10 ML VIAL IRRIGATION STA (08:32)
[2019-12-28] MEDS ORDERED: TRANEXAMIC ACID 1,000 MG in SODIUM CHLORIDE 0.9% 100 ML IVPB STA ×2 (08:35→08:36)
[2019-12-28] MEDS ORDERED: HYDROmorphone 1 MG/ML 1 ML SYRINGE IVP PRN (10:43)
[2019-12-28] MEDS ORDERED: TEMAZEPAM 15 MG CAP PO PRN (10:43)
[2019-12-28] MEDS ORDERED: NALOXONE 0.4 MG/ML 1 ML VIAL IV PRN (10:43)
[2019-12-28] MEDS ORDERED: MAGNESIUM HYDROXIDE 2,400 MG/10 ML CUP PO PRN (10:43)
[2019-12-28] MEDS ORDERED: HYDROcodone/APAP 5-325MG 1 EACH TAB PO PRN (10:43)
[2019-12-28] MEDS ORDERED: HYDROmorphone 0.5 MG/0.5 ML SYRINGE IVP PRN ×2 (10:43)
[2019-12-28] MEDS ORDERED: HYDROmorphone 1 MG/ML 1 ML SYRINGE IVP ONE ×3 (10:45→11:15)
--- NOTE | 2019-12-28 11:01 | P.OP ---
Date of Procedure: 12/28/19 Procedure(s) Performed: 400 ebl MAGY for fracture hip Nunez Note-brisk bleeding from canal, bone appeared soft PREOPERATIVE DIAGNOSIS: Left hip displaced femoral neck fracture POSTOPERATIVE DIAGNOSIS: Left hip displaced femoral neck fracture OPERATION: Left hip total replacement arthroplasty (uncemented, metal on polyethylene). ANESTHESIA: Spinal ESTIMATED BLOOD LOSS: 100 ml. BIOFUELS MANAGER: Fadumo Nunez PA-C (assistance with: patient positioning, retraction, exposure, hemostasis, leg positioning, implantation, irrigation, closure, dressing) COMPLICATIONS: None apparent. COMPONENTS IMPLANTED: Andrés continuum acetabular cup with cluster holes; continuum longevity 15 elevated liner, 32 mm id; Andrés VerSys LD fracture stem; VerSys 32 mm femoral head with +10.5 mm neck length extension PROCEDURE: After appropriate consent was obtained, the patient was taken to the operating room and placed in supine position. Spinal anesthetic was administered and after confirmation of adequate anesthesia, the patient was placed into the lateral decubitus position with the left side up. Care was taken to make sure that all pressure points were adequately padded and a Mike hip positioned was used to stabilize the patient to the table. The left hip was prepped and draped in the usual aseptic fashion using a combination of ChloraPrep and alcohol. Ioban drape was used for the case and the patient received intravenous antibiotics prior to the incision. Timeout was called, confirming patient identity, side, procedure, availability of implants, administration of TXA and administration of antibiotics. The incision was created directly over the greater trochanter and carried slightly posteriorly for a posterior approach to the hip. The incision was then deepened down to subcutaneous tissue and fascia cecilio. Fascia cecilio was split in line with the incision and split proximally along the fibers of the gluteus edwin. The underlying fibers of the muscle were teased apart using finger dissection and bleeding vessels were picked up and coagulated. Retractor was then placed posteriorly consisting of a blunt Hendley. The short external rotators and capsule were exposed using good visualization of the attachment of the external rotators to the femur was established. The short external rotators and capsule were released using electrocautery from their femoral attachments. A hockey stick shaped incision was created in the capsule. Hemarthrosis was evacuated and the patient's hip was internally rotated to expose the femoral neck. The femoral neck cut was created approximately 1 cm superior to the lesser trochanter using a reciprocating saw. Bone quality was poor, with soft bone and somewhat increased vascularity around the proximal femur. The femoral head and neck fragment was removed and attention was then directed to the acetabulum. An anterior acetabular retractor was applied followed by posterior retraction of the capsule with a Meyerding retractor. This afforded good visualization into the acetabular cavity. Cartilage was relatively normal for age with mild degenerative changes. Soft tissue was removed and residual cartilage within the acetabular vault was removed using a curette. Labrum was removed using a long- handled knife. Attention was then directed to reaming. The size 43 reamer was used first, followed by increasing increments until the final size reamer was used. Please see the implantation sheet for exact sizes used for the components. Once the final reamer had been utilized to expand the socket it was noted that there was a good supportive bone around the acetabular socket and no further reaming needed to be performed. The trial the same size as the last reamer used was then impacted into the acetabular vault and found to have good fit. The acetabular size, one size (2 mm) greater than the trial was then called for. The cluster holes were placed posteriorly and the component was impacted in a position of approximately 40 degrees abduction and 20 degrees anteversion. This matched this patient's makah anteversion and it was noted that the cup had excellent stability. Attention was then directed to the acetabular liner. To optimize stability, a 15 elevated liner was used and locked into position with the elevation posterior superior. Osteophytes around the posterior and inferior aspect of the acetabulum were trimmed as necessary to prevent any impingement. Attention was then directed back to the proximal femur. Retractors were placed around the proximal femur and box osteotome was used followed by canal finder and trochanteric reamer. The canal finder entered the femur easily, indicating likely poor bone quality within the metaphyseal region and diaphysis of the femur. Bleeding was brisk during this stage. Reamings were sent to pathology for analysis as well. Cylindrical reaming was performed. Progressive broaching was then performed starting with a #10 broach and progressing final size, in a position of 15 degrees anteversion. [place] anteversion was within 5 degrees of stem position. The final size broach had excellent fit and fill of the patient's metaphysis and diaphysis. Trial reduction was then performed starting with size 32 mm femoral head and various neck combination of stability, limb length equality, and soft tissue tension. Trial components were then removed. The canal was pulse lavaged and the final size femoral stem component was impacted into position. The implant fit very well and had excellent stability. The femoral head was then impacted onto the Lopez taper. Blood and debris were removed from the acetabular component and the hip was then reduced and checked for stability, limb length and soft tissue tension. These parameters were found to be satisfactory and the wound was then thoroughly irrigated with normal saline. Final hemostasis was obtained using electrocautery and IV tranexamic acid. Closure of the capsule was performed meticulously using #3 Vicryl suture. Four [id number] sutures were placed in the posterior capsule along with repair o f the external rotators. The fascia cecilio was then repaired using combination of #3 Vicryl suture in interrupted fashion and Quill and running fashion. 2-0 Vicryl suture was used for the subcutaneous tissues and 3-0 Quill for the skin. Dermabond or Steri-Strips were then applied. The patient tolerated the procedure well. There were no complications and the wound bed was dry and there was no need for drain placement. Sterile dressing was then applied and the patient was carefully removed from the operating room table, placed on the stretcher, and was taken to the recovery room in stable condition. Sponge and needle counts were correct.
[2019-12-28] MEDS ORDERED: ONDANSETRON 4 MG/2 ML VIAL IVP ONE (11:18)
--- NOTE | 2019-12-28 11:23 | XR ---
EXAMINATION TYPE: XR Hip Limited LT DATE OF EXAM: 12/28/2019 COMPARISON: NONE HISTORY: 64-year-old female status post hip surgery, assess surgical alignment TECHNIQUE: Single AP view FINDINGS: Image shows placement of left hip total arthroplasty. Both acetabular cup and femoral stem components of the prosthesis appear well seated without periprosthetic fracture. Alignment grossly anatomic. Sc attered soft tissue air related to recent operation. IMPRESSION: Uncomplicated postoperative appearance left total hip arthroplasty.
[2019-12-28 11:30] LABS: Glucose,Whole Blood 93 mg/dL (75-99)
[2019-12-28] MEDS ORDERED: diphenhydrAMINE 50 MG/ML 1 ML VIAL IVP ONE (11:35)
[2019-12-28 11:55] VITALS: BMI 29.5
[2019-12-28] MEDS: TOPIRAMATE 100 MG TAB PO SCH ×2 (14:48→20:06)
[2019-12-28 15:15] LABS: Glucose,Whole Blood 133 mg/dL (75-99)
[2019-12-28] MEDS: LACTATED RINGERS 1,000 ML IV SCH (15:54)
[2019-12-28 16:53] LABS: Glucose,Whole Blood 156 mg/dL (75-99)
--- NOTE | 2019-12-28 19:00 | PN ---
PROGRESS NOTE SUBJECTIVE: This is a 64-year-old with a fall with a closed left hip fracture. CT scans are all normal. Bone scan is negative. Continue current orthotics. The patient is in surgery. Vital signs stable. CARDIOVASCULAR: S1, S2. GI soft. Hematology negative Homans. Continue current treatment. Medications from home restarted. Pain control. MMODL / ANGELN: [id number] /
[2019-12-28] MEDS: SENNOSIDES-DOCUSATE SODIUM 1 EACH TAB PO SCH (20:06)
[2019-12-28] MEDS: ASPIRIN 325 MG TAB PO SCH (20:06)
[2019-12-28 20:53] LABS: Glucose,Whole Blood 303 mg/dL (75-99)
[2019-12-28] MEDS: INSULIN DETEMIR (LEVEMIR) 100 UNIT/ML SYR SQ SCH (20:56)
[2019-12-29] MEDS: LACTATED RINGERS 1,000 ML IV SCH ×2 (06:52→18:05)
[2019-12-29 07:05] LABS: Glucose,Whole Blood 73 mg/dL (75-99)
[2019-12-29] MEDS: INSULIN ASPART (NovoLOG) 100 UNIT/ML VIAL SQ SCH ×4 (07:39→22:17)
[2019-12-29] MEDS: HYDROcodone/APAP 5-325MG 1 EACH TAB PO PRN ×2 (07:47→16:18)
[2019-12-29] MEDS: TOPIRAMATE 100 MG TAB PO SCH ×2 (07:48→22:18)
[2019-12-29] MEDS: ASPIRIN 325 MG TAB PO SCH ×2 (07:48→22:18)
--- NOTE | 2019-12-29 08:22 | P.PN ---
Subjective Progress Note Date: 12/29/19 Principal diagnosis: Comminuted femoral neck fracture of the left hip. This is a 64-year-old female who presented to the emergency department early this morning with complaint of left hip pain. The patient states that she tripped over her pillow and fell into the wall at home. She states that she did have immediate hip pain but was able to ambulate. She states that she thought she just had a sprain of her hip. He became increasingly difficult to ambulate over the following few hours. She then called her daughter to bring her to the hospital. She states that she did bump her head when she fell and has a bit of a headache but no neck pain. On exam and x-ray she is noted to have a comminuted femoral neck fracture of the left hip. She is admitted to our service for surgical intervention and care. The patient denies any history of cancer or metastatic disease. She is diabetic and has history of epilepsy with grand mal seizure. 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 Patient is post op day 1. She has no new complaints at this time. She is doing well and pain is under control. She states she has been getting out of bed to use the bedside commode with a walker. Objective - Vital Signs Vital signs: Vital Signs Temp 98.5 F 12/29/19 07:52 Pulse 106 H 12/29/19 07:52 Resp 16 12/29/19 07:52 BP 128/78 12/29/19 07:52 Pulse Ox 97 12/29/19 07:52 Intake & Output 12/28/19 12/29/19 12/29/19 18:59 06:59 18:59 Intake Total 2050 300 Output Total 400 1000 Balance 1650 -700 Weight 83.007 kg Intake: IV 1500 Intake, IV Titration 300 300 Amount Lactated Ringers 1,000 ml 300 300 @ 100 mls/hr IV .Q10H AMRIT Rx#:[id number] Oral 250 Output: Urine 1000 Estimated Blood Loss 400 Other: Voiding Method Bedside Commode Toilet # Voids 1 3 - Exam Patient is alert and oriented this morning laying in bed. She is in no acute distress. There are no new complaints at this time. Exam of lower extremities show no deformities. Left hip dressing is intact without signs of drainage. Patient is able to perform a straight leg raise with minimal pain. She is able to move her toes and has full range of motion of bilateral ankles. Bilateral pulses and neurovascular status to the lower extremities are intact. - Labs CBC & Chem 7: 12/27/19 07:02 12/27/19 07:02 Labs: Abnormal Lab Results - Last 24 Hours (Table) 12/28/19 12/28/19 12/28/19 Range/Units 08:04 15:13 16:51 POC Glucose (mg/dL) 112 H 133 H 156 H (75-99) mg/dL 12/28/19 12/29/19 Range/Units 20:51 07:03 POC Glucose (mg/dL) 303 H 73 L (75-99) mg/dL Assessment and Plan Assessment: Patient is doing well and is able to get up independently to use the restroom. R esults of surgery were discussed with the patient. She does not wish to go to rehab center and would like to return home. She will be working with PT today with the plan to be discharged tomorrow depending on status. All questions and concerns were addressed with the patient and she agrees with this plan. (1) Diabetes Current Visit: Yes Status: Acute Code(s): E11.9 - TYPE 2 DIABETES MELLITUS WITHOUT COMPLICATIONS SNOMED Code(s): 90623162 (2) Seizure disorder Current Visit: Yes Status: Acute Code(s): G40.909 - EPILEPSY, UNSP, NOT INTRACTABLE, WITHOUT STATUS EPILEPTICUS SNOMED Code(s): 342742545 (3) Closed left hip fracture Current Visit: Yes Status: Acute Code(s): S72.002A - FRACTURE OF UNSP PART OF NECK OF LEFT FEMUR, INIT SNOMED Code(s): 505764603 (4) Fall Current Visit: Yes Status: Acute Code(s): W19.XXXA - UNSPECIFIED FALL, INITIAL ENCOUNTER SNOMED Code(s): 4362298
[2019-12-29 08:34] LABS: Basophils % (A) 0 %; Eosinophils % (A) 0 %; HCT 31.8 % (34.0-46.0); HGB 10.4 gm/dL (11.4-16.0); Lymphocytes # (A) 0.5 k/uL (1.0-4.8); Lymphocytes % (A) 5 %; MCH 28.6 pg (25.0-35.0); MCHC 32.9 g/dL (31.0-37.0); MCV 87.1 fL (80.0-100.0); Monocytes # (A) 0.8 k/uL (0-1.0); Monocytes % (A) 8 %; Neutrophils # (A) 9.2 k/uL (1.3-7.7); Neutrophils % (A) 86 %; Platelet Count 170 k/uL (150-450); RBC 3.65 m/uL (3.80-5.40); WBC 10.6 k/uL (3.8-10.6)
[2019-12-29 11:55] LABS: Glucose,Whole Blood 180 mg/dL (75-99)
[2019-12-29 17:00] LABS: Glucose,Whole Blood 329 mg/dL (75-99)
[2019-12-29 22:09] LABS: Glucose,Whole Blood 337 mg/dL (75-99)
[2019-12-29] MEDS: INSULIN DETEMIR (LEVEMIR) 100 UNIT/ML SYR SQ SCH (22:17)
[2019-12-29] MEDS: SENNOSIDES-DOCUSATE SODIUM 1 EACH TAB PO SCH (22:18)
[2019-12-30] MEDS: LACTATED RINGERS 1,000 ML IV SCH ×3 (01:35→22:57)
[2019-12-30] MEDS: HYDROcodone/APAP 5-325MG 1 EACH TAB PO PRN ×4 (01:37→23:06)
--- NOTE | 2019-12-30 06:35 | PN ---
PROGRESS NOTE A 64-year-old white female with followup closed left hip fracture. Bone scans are negative. CT scans were all negative. CARDIOVASCULAR: S1, S2. LUNGS: Clear. GI: soft. HEMATOLOGY: Negative Homans. Status post hip fracture, surgical repair. Follow up with PT, OT for possible discharge home or to a rehab center. MMODL / IJN: [id number] /
[2019-12-30 07:16] LABS: Glucose,Whole Blood 69 mg/dL (75-99)
[2019-12-30 07:42] LABS: Glucose,Whole Blood 95 mg/dL (75-99)
[2019-12-30] MEDS: INSULIN ASPART (NovoLOG) 100 UNIT/ML VIAL SQ SCH ×4 (08:27→21:37)
[2019-12-30] MEDS: TOPIRAMATE 100 MG TAB PO SCH ×2 (08:33→21:37)
[2019-12-30] MEDS: ASPIRIN 325 MG TAB PO SCH ×2 (08:33→21:37)
--- NOTE | 2019-12-30 10:16 | P.PN ---
Subjective Progress Note Date: 12/30/19 This is a 64-year-old female status post surgical repair of comminuted femoral neck fracture of the left hip. Pain controlled. Tolerating diet with no nausea vomiting or diarrhea. Passing flatus. Ambulating with walker, tolerated exertion well. Denies lightheadedness, dizziness or focal deficits. Denies chest pain, palpitations or shortness of breath. Currently afebrile, T-max 100.1. UA reporting large leukocytes, WBC elevated at 21. Blood sugars uncontrolled, Hemoglobin A1c 12.1. Objective - Vital Signs Vital signs: Vital Signs Temp 98.4 F 12/30/19 07:00 Pulse 96 12/30/19 07:00 Resp 16 12/30/19 07:00 BP 121/70 12/30/19 07:00 Pulse Ox 98 12/30/19 07:00 Intake & Output 12/29/19 12/30/19 12/30/19 18:59 06:59 18:59 Intake Total 500 820 Balance 500 820 Intake: Oral 500 820 Other: # Voids 3 3 - Exam PHYSICAL EXAM: VITAL SIGNS: As above GENERAL: Sitting up in bed, no acute distress HEENT: Conjunctivae normal. eyes normal. Oral mucosa moist NECK: No JVD. No thyroid enlargement. No LNs CARDIOVASCULAR: S1, S2 regular.. No murmur RESPIRATION: Breath sounds diminished in the bases. No rhonchi or crackles. No bronchial breathing. ABDOMEN: Soft, nontender . No guarding. no masses palpable. Bowel sounds heard. LEGS: Left hip dressing clean dry and intact, minimal edema, positive DP pulse, strength and sensation grossly intact. PSYCHIATRY: Alert and oriented X3, mood and affect normal. NERVOUS SYSTEM: Cranial N 2-12 grossly normal. Moves all 4 limbs. Diffuse weakness No focal deficits. Skin: no rash - Labs CBC & Chem 7: 12/29/19 07:56 12/27/19 07:02 Labs: Abnormal Lab Results - Last 24 Hours (Table) 12/29/19 12/29/19 12/29/19 Range/Units 11:54 16:58 22:08 POC Glucose (mg/dL) 180 H 329 H 337 H (75-99) mg/dL 12/30/19 Range/Units 07:14 POC Glucose (mg/dL) 69 L (75-99) mg/dL Assessment and Plan Assessment: Comminuted femoral neck fracture of the left hip, status post fall, status post left hip total replacement arthroplasty Possible acute UTI, on empiric antibiotics Diabetes mellitus, uncontrolled, hemoglobin A1c 12.1 Seizure disorder Depression Obesity, BMI 29.5 Plan: Continue on current medication regime ,monitoring and symptomatic treatment. Pain management, anticoagulation as per primary. telehealth nurse educator, dietitian consulted regarding uncontrolled diabetes. further diabetic education classes at PCPs office outpatient. Follow-up with Dr. Castillo in 1 week. Empiric antibiotics for possible UTI. The impression and plan of care has been dictated as directed. : I performed a history and examination of this patient, discussed the same with the dictator. I agree with the dictator's note ,documented as a scribe. Any additional findings or plans will be noted.
--- NOTE | 2019-12-30 11:15 | P.DS ---
Providers Date of admission: 12/27/19 07:05 Expected date of discharge: 12/30/19 Attending physician: Pedro Vazquez Consults: 12/27/19 06:50 Consult Physician Stat Consulting Provider: Manuel Castillo Reason/Comments: Surgical clearance Do you want consulting provider notified?: Yes Primary care physician: Manuel Castillo - Discharge Diagnosis(es) (1) Diabetes Current Visit: Yes Status: Acute (2) Seizure disorder Current Visit: Yes Status: Acute (3) Closed left hip fracture Current Visit: Yes Status: Acute (4) Fall Current Visit: Yes Status: Acute Hospital Course: This is a 64-year-old female who presented to the emergency department after fall, sustaining injury to her left hip. On exam and x-ray in the emergency department she is found to have a comminuted femoral neck fracture of the left hip. It was recommended that she undergo hemiarthroplasty versus total hip arthroplasty. After discussion and consideration patient elects to proceed with the procedure. Intraoperatively it was decided that the best course of action was a total hip arthroplasty. The patient was cleared for surgery preoperatively by internal medicine. CT of the chest abdomen and pelvis as well as bone scan were performed due to the fact that the patient did not fall to the ground. She merely hit her hip against a wall and sustained a comminuted fracture. All scans were negative for metastatic disease. The patient has no history of cancer that she is aware of. The patient was taken to surgery on 12/28/2023 total left hip arthroplasty. The femoral head and neck fragments were sent to pathology for further evaluation. The procedure was performed without complication or sequelae. The patient is doing well postoperatively. Labs and vital signs are stable on day of discharge. On day of discharge patient's hip incision is healing well. There is minimal erythema. There is no drainage noted at this time. There is minimal soft tissue swelling to the hip and thigh. Patient has full foot and ankle motion without difficulty or pain. Neurovascular status to the left lower extremity is intact. Patient is discharged to home in good condition. Please see med rec for accurate list of home medications. Patient Condition at Discharge: Fair Plan - Discharge Summary Discharge Rx Participant: No New Discharge Prescriptions: New Cefuroxime Axetil [Ceftin] 500 mg PO BID 3 Days #6 tab Sennosides-Docusate Sodium [Senokot-S] 2 each PO HS tab Aspirin 325 mg PO BID #60 tab HYDROcodone/APAP 5-325MG [[place] 5-325] 1 - 2 each PO Q4-6H PRN #50 tab PRN Reason: Pain Sennosides-Docusate Sodium [Senokot-S] 1 tab PO BID #60 tablet Ondansetron Odt [Zofran Odt] 4 mg PO Q8HR PRN #14 tab PRN Reason: Nausea Continue Insulin Glargine [Lantus] 25 unit SQ HS Topiramate [Topamax] 100 mg PO BID metFORMIN HCL [Glucophage] 500 mg PO BID Insulin Lispro [Admelog] 7 unit SQ QID #0 Discharge Medication List Insulin Glargine [Lantus] 25 unit SQ HS 04/14/17 [History] Topiramate [Topamax] 100 mg PO BID 10/09/19 [History] metFORMIN HCL [Glucophage] 500 mg PO BID 10/09/19 [History] Aspirin 325 mg PO BID #60 tab 12/30/19 [Rx] Cefuroxime Axetil [Ceftin] 500 mg PO BID 3 Days #6 tab 12/30/19 [Rx] HYDROcodone/APAP 5-325MG [[place] 5-325] 1 - 2 each PO Q4-6H PRN #50 tab 12/30/19 [Rx] Insulin Lispro [Admelog] 7 unit SQ QID #0 12/30/19 [Rx] Ondansetron Odt [Zofran Odt] 4 mg PO Q8HR PRN #14 tab 12/30/19 [Rx] Sennosides-Docusate Sodium [Senokot-S] 1 tab PO BID #60 tablet 12/30/19 [Rx] Sennosides-Docusate Sodium [Senokot-S] 2 each PO HS tab 12/30/19 [Rx] Follow up Appointment(s)/Referral(s): Manuel Castillo MD [Primary Care Provider] - 1-2 days Pedro Vazquez MD [STAFF PHYSICIAN] - 01/13/20 9:50 am Ambulatory/Diagnostic Orders: Walker [DME.AMB1] Location: None Selected Activity/Diet/Wound Care/Special Instructions: Diabetic education classes at Dr. Castillo's office, hemoglobin A1c 12.1 May bear wt as tolerated w walker. May shower if no drainage from incision. Discharge Disposition: HOME WITH HOME HEALTH SERVICES
[2019-12-30 11:34] LABS: Glucose,Whole Blood 122 mg/dL (75-99)
[2019-12-30 17:01] LABS: Glucose,Whole Blood 273 mg/dL (75-99)
[2019-12-30 20:18] LABS: Glucose,Whole Blood 260 mg/dL (75-99)
[2019-12-30] MEDS: SENNOSIDES-DOCUSATE SODIUM 1 EACH TAB PO SCH (21:36)
[2019-12-30] MEDS: INSULIN DETEMIR (LEVEMIR) 100 UNIT/ML SYR SQ SCH (21:37)
[2019-12-31 03:27] VITALS: RESP 18
[2019-12-31] MEDS: HYDROcodone/APAP 5-325MG 1 EACH TAB PO PRN ×2 (06:08→13:17)
[2019-12-31 07:00] LABS: Glucose,Whole Blood 51 mg/dL (75-99)
[2019-12-31 07:26] LABS: Glucose,Whole Blood 65 mg/dL (75-99)
[2019-12-31 08:03] LABS: Basophils % (A) 0 %; Eosinophils # (A) 0.2 k/uL (0-0.7); Eosinophils % (A) 3 %; HCT 30.2 % (34.0-46.0); HGB 9.7 gm/dL (11.4-16.0); Lymphocytes # (A) 0.6 k/uL (1.0-4.8); Lymphocytes % (A) 9 %; MCH 28.1 pg (25.0-35.0); MCHC 32.2 g/dL (31.0-37.0); MCV 87.3 fL (80.0-100.0); Monocytes # (A) 0.6 k/uL (0-1.0); Monocytes % (A) 9 %; Neutrophils # (A) 5.3 k/uL (1.3-7.7); Neutrophils % (A) 78 %; Platelet Count 214 k/uL (150-450); RBC 3.46 m/uL (3.80-5.40); RDW 14.8 % (11.5-15.5); WBC 6.8 k/uL (3.8-10.6)
[2019-12-31 08:04] LABS: Glucose,Whole Blood 148 mg/dL (75-99)
[2019-12-31] MEDS: INSULIN ASPART (NovoLOG) 100 UNIT/ML VIAL SQ SCH ×2 (08:17→12:36)
[2019-12-31] MEDS: ASPIRIN 325 MG TAB PO SCH (08:32)
[2019-12-31] MEDS: TOPIRAMATE 100 MG TAB PO SCH (08:34)
[2019-12-31] MEDS: LACTATED RINGERS 1,000 ML IV SCH (10:15)
--- NOTE | 2019-12-31 10:55 | CDI ---
Documentation Clarification Form Date: 12/30/2019 07:18:00 AM From: Kaylene Chang RN, CCDS Admit Date: 12/27/2019 07:05:00 AM Patient Name: Tiana Elizondo Visit Number: [id number] Discharge Date: ATTENTION: The Clinical Documentation Specialists (CDI) and [facility] Coding Staff appreciate your assistance in clarifying documentation. Please respond to the clarification below the line at the bottom and electronically sign. The CDI & [facility] Coding staff will review the response and follow-up if needed. Please note: Queries are made part of the Legal Health Record. If you have any questions, please contact the author of this message via ITS. Dr. Manuel Castillo Documentation states: Operate note 12/27: " 400 ebl"; " MAGY for fracture hip; Note-brisk bleeding from canal, bone appeared soft" "Estimated blood loss: 100 ml" History/Risk Factors: Acute impacted subcapital fracture left femur, Diabetes Mellitus Clinical indicators: 64-year-old female presents to emergency department via EMS with complaint of left hip, left leg pain. She tripped over a pillow falling into the wall. She was found to have a left hip displaced femoral neck fracture. On 12/27 she had a left hip total replacement arthroplasty. In the operative note: "The canal finder entered the femur easily, indicating likely poor bone quality within the metaphyseal region and diaphysis of the femur. Bleeding was brisk during this stage." 12/26 HGB 12.7, HCT 39.5 12/28 HGB 10.4, HCT 31.8 12/30 HGB 9.7 HCT 30.2 Treatment: Monitoring CBC Clinical significance of diagnostic testing and treatment CANNOT be assumed or coded without physician documentation of significance if any. Please clarify what abnormal laboratory signifies: Acute blood loss anemia, Expected Disease process, please specify Unable to determine Other, please specify (Last Revision: July 2017) MTDD
[2019-12-31 11:37] LABS: Glucose,Whole Blood 169 mg/dL (75-99)
[2019-12-31 15:25] VITALS: BP 110/70; PULSE 81; TEMP 97.9
--- NOTE | 2020-01-01 07:54 | DS ---
DISCHARGE SUMMARY Please add to discharge summary: Acute blood loss anemia secondary to surgery. MMODL / IJN: [id number] /
== END 2019-12-31 15:59 | disposition home health service (06) | DRG 470 ==
LOC: EC 05:53 → 4SSUR 07:05
PROVIDERS: ADMIT Orthopaedic Surgery; ATTEND Orthopaedic Surgery
PROC: 0SRB02A Replacement of Left Hip Joint with Metal on Polyethylene Synthetic Substitute, Uncemented, Open Approach (ICD-10-PCS; principal; 2019-12-28 07:11)
DX: S72.002A Fracture of unspecified part of neck of left femur, initial encounter for closed fracture (principal); D62 Acute posthemorrhagic anemia; N39.0 Urinary tract infection, site not specified; F32.9 Major depressive disorder, single episode, unspecified; G40.409 Other generalized epilepsy and epileptic syndromes, not intractable, without status epilepticus; E11.65 Type 2 diabetes mellitus with hyperglycemia; I10 Essential (primary) hypertension; E66.9 Obesity, unspecified; W01.198A Fall on same level from slipping, tripping and stumbling with subsequent striking against other object, initial encounter; Z71.3 Dietary counseling and surveillance; Z68.29 Body mass index [BMI] 29.0-29.9, adult; Z79.4 Long term (current) use of insulin; Z79.899 Other long term (current) drug therapy; Z90.710 Acquired absence of both cervix and uterus; Z90.49 Acquired absence of other specified parts of digestive tract; Z98.890 Other specified postprocedural states; Z88.5 Allergy status to narcotic agent; Z88.8 Allergy status to other drugs, medicaments and biological substances; Z80.9 Family history of malignant neoplasm, unspecified
CPT/HCPCS: 71045; 71250; 72170; 73501; 74176; 78306; 80053; 81001; 83036; 85025; 85610; 85730; 88305; 88311; 93005; 96374; 96375; 99285

== ENCOUNTER 2020-09-24 19:01 | Emergency (ER) | payer OTHER ==
[2020-09-24 19:27] VITALS: BP 125/70; PULSE 79; RESP 18; TEMP 98.7
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
== END 2020-09-24 21:22 | disposition home or self-care (01) ==
LOC: EC 19:01
DX: S00.83XA Contusion of other part of head, initial encounter (principal); E11.9 Type 2 diabetes mellitus without complications; G40.909 Epilepsy, unspecified, not intractable, without status epilepticus; Z79.01 Long term (current) use of anticoagulants; Z79.4 Long term (current) use of insulin; Z79.899 Other long term (current) drug therapy; Z88.5 Allergy status to narcotic agent; Z91.048 Other nonmedicinal substance allergy status; Y04.0XXA Assault by unarmed brawl or fight, initial encounter
CPT/HCPCS: 99284

== ENCOUNTER 2021-02-20 11:38 | Emergency (ER) | payer OTHER ==
[2021-02-20 11:46] LABS: Glucose,Whole Blood 455 mg/dL (75-99)
[2021-02-20] MEDS ORDERED: ONDANSETRON 4 MG/2 ML VIAL IVP STA (12:04)
[2021-02-20] MEDS ORDERED: SODIUM CHLORIDE 0.9% 1,000 ML IV STA (12:04)
--- NOTE | 2021-02-20 12:05 | ED ---
General Adult HPI - General Chief complaint: Recheck/Abnormal Lab/Rx Stated complaint: High Sugar Time Seen by Provider: 02/20/21 11:48 Source: patient, RN notes reviewed Mode of arrival: wheelchair Limitations: no limitations - History of Present Illness Initial comments: 65-year-old female presents to emergency department complaining of elevated blood glucose levels. She notes that she ran out of her long-acting glargine at home. She notes that she tried calling her primary care to get a refill sent to pharmacy but is yet to do so. She notes that she woke up today her sugar was in the 400s she took her rapid acting insulin 10 units it started to come the follow bit but started low back up a she also that she took Zofran for nausea. She notes that this is happened in the past and that if she needed her long- acting he usually helps. She did note that she is on a sliding scale for rapid acting that she is supposed to 11 units for anything over 450. She was informed of the sliding scale was slightly inaccurate and she talk to her primary care about adjusting it. She denied any chest pain shortness of breath vomiting diarrhea constipation fever fatigue chills. - Related Data Home Medications Medication Instructions Recorded Confirmed Topiramate [Topamax] 100 mg PO BID 10/09/19 02/20/21 Insulin Glargine,Hum.rec.anlog 22 unit SQ HS 02/20/21 02/20/21 [Basaglar Kwikpen U-100] Insulin Lispro [Admelog] 6 unit SQ AC-TID 02/20/21 02/20/21 Insulin Lispro [Admelog] See Protocol SQ AC-TID 02/20/21 02/20/21 metFORMIN HCL 500 mg PO BID 02/20/21 02/20/21 Previous Rx's Medication Instructions Recorded Insulin Glargine [Lantus] 25 unit SQ HS #3 vial 02/20/21 Allergies Allergy/AdvReac Type Severity Reaction Status Date / Time codeine Allergy Nausea & Verified 02/20/21 13:23 Vomiting iodine Allergy Anaphylaxis Verified 02/20/21 13:23 Iodine and Iodide Containing Allergy Anaphylaxis Verified 02/20/21 13:23 Produc Review of Systems ROS Statement: Those systems with pertinent positive or pertinent negative responses have been documented in the HPI. ROS Other: All systems not noted in ROS Statement are negative. Past Medical History Past Medical History: Diabetes Mellitus, Seizure Disorder Additional Past Medical History / Comment(s): SEIZURE 05/23/17, ELECTROLYTES WERE ABN. ONGOING DIARRHEA, W/ LOW K+. PAIN IN JOINTS. History of Any Multi-Drug Resistant Organisms: None Reported Past Surgical History: Cholecystectomy, Hysterectomy, Orthopedic Surgery, Tonsillectomy Additional Past Surgical History / Comment(s): BSO. Hip sx left, right knee Past Anesthesia/Blood Transfusion Reactions: Previous Problems w/ Anesthesia, Motion Sickness Additional Past Anesthesia/Blood Transfusion Reaction / Comment(s): AWAKENED DURING SURGERY X1. Past Psychological History: Depression Smoking Status: Never smoker Past Alcohol Use History: None Reported Past Drug Use History: None Reported - Past Family History Father Family Medical History: Cancer General Exam Limitations: no limitations General appearance: alert, in no apparent distress Head exam: Present: atraumatic, normocephalic, normal inspection Eye exam: Present: normal appearance, PERRL, EOMI. Absent: scleral icterus, conjunctival injection, periorbital swelling Neck exam: Present: normal inspection. Absent: tenderness Respiratory exam: Present: normal lung sounds bilaterally. Absent: respiratory distress, wheezes, rales, rhonchi, stridor Cardiovascular Exam: Present: regular rate, normal rhythm, normal heart sounds. Absent: systolic murmur, diastolic murmur, rubs, gallop, clicks GI/Abdominal exam: Present: soft, normal bowel sounds. Absent: distended, tenderness, guarding, rebound, rigid Extremities exam: Present: normal inspection, full ROM, normal capillary refill. Absent: tenderness, pedal edema, joint swelling, calf tenderness Neurological exam: Present: alert, oriented X3, CN II-XII intact Psychiatric exam: Present: normal affect, normal mood Skin exam: Present: warm, dry, intact, normal color. Absent: rash Course Vital Signs 02/20/21 02/20/21 11:39 13:00 Temperature 97.3 F L Pulse Rate 100 82 Respiratory 18 20 Rate Blood Pressure 113/77 106/65 O2 Sat by Pulse 100 99 Oximetry Medical Decision Making - Medical Decision Making 65-year-old female with hyperglycemia and history of diabetes. Basic labs, 1 L normal saline, 4 mg of Zofran ordered. 16 units of insulin ordered, serum glucose 434 area After insulin patient's glucose dropped to 279. Case discussed with Dr. Harvey, patient can discharge home with follow-up primary care. - Lab Data Result diagrams: 02/20/21 12:12 02/20/21 12:12 Lab Results 02/20/21 02/20/21 02/20/21 Range/Units 11:44 12:12 12:12 WBC 9.7 (3.8-10.6) k/uL RBC 5.01 (3.80-5.40) m/uL Hgb 14.7 (11.4-16.0) gm/dL Hct 44.8 (34.0-46.0) % MCV 89.5 (80.0-100.0) fL MCH 29.3 (25.0-35.0) pg MCHC 32.7 (31.0-37.0) g/dL RDW 14.4 (11.5-15.5) % Plt Count 264 (150-450) k/uL MPV 7.9 Neutrophils % 89 % Lymphocytes % 6 % Monocytes % 4 % Eosinophils % 1 % Basophils % 0 % Neutrophils # 8.6 H (1.3-7.7) k/uL Lymphocytes # 0.6 L (1.0-4.8) k/uL Monocytes # 0.3 (0-1.0) k/uL Eosinophils # 0.1 (0-0.7) k/uL Basophils # 0.0 (0-0.2) k/uL Sodium (137-145) mmol/L Potassium (3.5-5.1) mmol/L Chloride (98-107) mmol/L Carbon Dioxide (22-30) mmol/L Anion Gap mmol/L BUN (7-17) mg/dL Creatinine (0.52-1.04) mg/dL Est GFR (CKD-EPI)AfAm (>60 ml/min/1.73 sqM) Est GFR (CKD-EPI)NonAf (>60 ml/min/1.73 sqM) Glucose (74-99) mg/dL POC Glucose (mg/dL) 455 H (75-99) mg/dL POC Glu Fuse Assembler ID Heaven Mcgee Calcium (8.4-10.2) mg/dL Total Bilirubin (0.2-1.3) mg/dL AST (14-36) U/L ALT (4-34) U/L Alkaline Phosphatase (38-126) U/L Total Protein (6.3-8.2) g/dL Albumin (3.5-5.0) g/dL Urine Color Colorless Urine Appearance Clear (Clear) Urine pH 5.0 (5.0-8.0) Ur Specific [place] 1.024 (1.001-1.035) Urine Protein Negative (Negative) Urine Glucose (UA) 4+ H (Negative) Urine Ketones 4+ H (Negative) Urine Blood Negative (Negative) Urine Nitrite Negative (Negative) Urine Bilirubin Negative (Negative) Urine Urobilinogen <2.0 (<2.0) mg/dL Ur Leukocyte Esterase Moderate H (Negative) Urine RBC 3 (0-5) /hpf Urine WBC 33 H (0-5) /hpf Ur Squamous Epith Cells <1 (0-4) /hpf Urine Bacteria Rare H (None) /hpf Urine Mucus Rare H (None) /hpf 02/20/21 02/20/21 Range/Units 12:12 13:43 WBC (3.8-10.6) k/uL RBC (3.80-5.40) m/uL Hgb (11.4-16.0) gm/dL Hct (34.0-46.0) % MCV (80.0-100.0) fL MCH (25.0-35.0) pg MCHC (31.0-37.0) g/dL RDW (11.5-15.5) % Plt Count (150-450) k/uL MPV Neutrophils % % Lymphocytes % % Monocytes % % Eosinophils % % Basophils % % Neutrophils # (1.3-7.7) k/uL Lymphocytes # (1.0-4.8) k/uL Monocytes # (0-1.0) k/uL Eosinophils # (0-0.7) k/uL Basophils # (0-0.2) k/uL Sodium 128 L (137-145) mmol/L Potassium 4.1 (3.5-5.1) mmol/L Chloride 94 L (98-107) mmol/L Carbon Dioxide 19 L (22-30) mmol/L Anion Gap 15 mmol/L BUN 15 (7-17) mg/dL Creatinine 0.74 (0.52-1.04) mg/dL Est GFR (CKD-EPI)AfAm >90 (>60 ml/min/1.73 sqM) Est GFR (CKD-EPI)NonAf 87 (>60 ml/min/1.73 sqM) Glucose 434 H (74-99) mg/dL POC Glucose (mg/dL) 279 H (75-99) mg/dL POC Glu Fuse Assembler Carolina Gomez Calcium 9.0 (8.4-10.2) mg/dL Total Bilirubin 0.7 (0.2-1.3) mg/dL AST 24 (14-36) U/L ALT 14 (4-34) U/L Alkaline Phosphatase 99 (38-126) U/L Total Protein 6.1 L (6.3-8.2) g/dL Albumin 3.7 (3.5-5.0) g/dL Urine Color Urine Appearance (Clear) Urine pH (5.0-8.0) Ur Specific [place] (1.001-1.035) Urine Protein (Negative) Urine Glucose (UA) (Negative) Urine Ketones (Negative) Urine Blood (Negative) Urine Nitrite (Negative) Urine Bilirubin (Negative) Urine Urobilinogen (<2.0) mg/dL Ur Leukocyte Esterase (Negative) Urine RBC (0-5) /hpf Urine WBC (0-5) /hpf Ur Squamous Epith Cells (0-4) /hpf Urine Bacteria (None) /hpf Urine Mucus (None) /hpf Disposition Clinical Impression: Uncontrolled diabetes mellitus, Hyperglycemia, Noncompliance with medication regimen Disposition: HOME SELF-CARE Condition: Stable Instructions (If sedation given, give patient instructions): Dehydration (ED) Additional Instructions: Please return to the Emergency Department if symptoms worsen or any other concerns. Follow-up with primary care in 3-5 days to get prescription refilled. Take all medications as prescribed. Prescriptions: Insulin Glargine [Lantus] 25 unit SQ HS #3 vial Is patient prescribed a controlled substance at d/c from ED?: No Referrals: Manuel Castillo MD [Primary Care Provider] - 1-2 days Time of Disposition: 13:48
[2021-02-20 12:24] LABS: Basophils % (A) 0 %; Eosinophils # (A) 0.1 k/uL (0-0.7); Eosinophils % (A) 1 %; HCT 44.8 % (34.0-46.0); HGB 14.7 gm/dL (11.4-16.0); Lymphocytes # (A) 0.6 k/uL (1.0-4.8); Lymphocytes % (A) 6 %; MCH 29.3 pg (25.0-35.0); MCHC 32.7 g/dL (31.0-37.0); MCV 89.5 fL (80.0-100.0); Mean Platelet Volume 7.9; Monocytes # (A) 0.3 k/uL (0-1.0); Monocytes % (A) 4 %; Neutrophils # (A) 8.6 k/uL (1.3-7.7); Neutrophils % (A) 89 %; Platelet Count 264 k/uL (150-450); RBC 5.01 m/uL (3.80-5.40); RDW 14.4 % (11.5-15.5); WBC 9.7 k/uL (3.8-10.6)
[2021-02-20 12:36] LABS: Appearance,Urine Clear (Clear); Bacteria,Urine Rare /hpf; Bilirubin,Urine Negative (Negative); Blood,Urine Negative (Negative); Color,Urine Colorless; Glucose,Urine (UA) 4+ (Negative); Leukocyte Esterase,Urine Moderate (Negative); Mucus,Urine Rare /hpf; Nitrite,Urine Negative (Negative); Protein,Urine Negative (Negative); RBC,Urine 3 /hpf (0-5); Specific Gravity,Urine 1.024 (1.001-1.035); Squamous Epithelial Cell,Urine <1 /hpf (0-4); Urobilinogen,Urine <2.0 mg/dL (<2.0); WBC,Urine 33 /hpf (0-5)
[2021-02-20] MEDS ORDERED: INSULIN ASPART (NovoLOG) 100 UNIT/ML VIAL SQ ONE (12:38)
[2021-02-20 12:39] LABS: ALT 14 U/L (4-34); AST 24 U/L (14-36); African American GFR (CKD) >90 (>60 ml/min/1.73 sqM); Albumin 3.7 g/dL (3.5-5.0); Alkaline Phosphatase 99 U/L (38-126); Anion Gap 15 mmol/L; Blood Urea Nitrogen 15 mg/dL (7-17); Carbon Dioxide 19 mmol/L (22-30); Chloride 94 mmol/L (98-107); Glucose 434 mg/dL (74-99); Non-African American GFR(CKD) 87 (>60 ml/min/1.73 sqM); Sodium 128 mmol/L (137-145); Total Bilirubin 0.7 mg/dL (0.2-1.3); Total Protein 6.1 g/dL (6.3-8.2)
[2021-02-20 12:40] LABS: Potassium 4.1 mmol/L (3.5-5.1)
[2021-02-20 12:42] LABS: Ketones,Urine 4+ (Negative)
[2021-02-20 13:22] VITALS: RESP 20
[2021-02-20 13:44] LABS: Glucose,Whole Blood 279 mg/dL (75-99)
[2021-02-20 14:28] VITALS: BP 110/51; PULSE 68; TEMP 98.7
== END 2021-02-20 14:15 | disposition home or self-care (01) ==
LOC: EC 11:38
DX: E11.65 Type 2 diabetes mellitus with hyperglycemia (principal); G40.909 Epilepsy, unspecified, not intractable, without status epilepticus; F32.9 Major depressive disorder, single episode, unspecified; Z79.4 Long term (current) use of insulin; Z90.722 Acquired absence of ovaries, bilateral; Z90.49 Acquired absence of other specified parts of digestive tract; Z90.710 Acquired absence of both cervix and uterus; Z90.09 Acquired absence of other part of head and neck; Z91.14 Patient's other noncompliance with medication regimen
CPT/HCPCS: 36415; 80053; 82009; 85025; 81001; 99285; 96374; 96361; J2405

== ENCOUNTER 2021-03-20 02:53 | Emergency (ER) | payer OTHER ==
[2021-03-20 02:59] VITALS: BP 142/82; PULSE 75; RESP 18; TEMP 97.8
[2021-03-20] MEDS ORDERED: diazePAM 5 MG TAB PO STA (03:27)
--- NOTE | 2021-03-20 03:29 | ED ---
Anxiety HPI - General Chief Complaint: Anxiety Stated Complaint: Anxiety Time Seen by Provider: 03/20/21 02:54 Source: patient Mode of arrival: ambulatory - Related Data Home Medications: Home Medications Medication Instructions Recorded Confirmed Topiramate [Topamax] 100 mg PO BID 10/09/19 02/20/21 Insulin Glargine,Hum.rec.anlog 22 unit SQ HS 02/20/21 02/20/21 [Basaglar Kwikpen U-100] Insulin Lispro [Admelog] 6 unit SQ AC-TID 02/20/21 02/20/21 Insulin Lispro [Admelog] See Protocol SQ AC-TID 02/20/21 02/20/21 metFORMIN HCL 500 mg PO BID 02/20/21 02/20/21 Previous Rx's Medication Instructions Recorded Insulin Glargine [Lantus] 25 unit SQ HS #3 vial 02/20/21 Topiramate [Topamax] 100 mg PO BID 10 Days #20 tab 02/20/21 Diazepam [Valium] 5 mg PO Q8H PRN 3 Days #9 tab 03/20/21 Allergies/Adverse Reactions: Allergies Allergy/AdvReac Type Severity Reaction Status Date / Time codeine Allergy Nausea & Verified 03/20/21 02:53 Vomiting iodine Allergy Anaphylaxis Verified 03/20/21 02:53 Iodine and Iodide Containing Allergy Anaphylaxis Verified 03/20/21 02:53 Produc Review of Systems ROS Statement: Those systems with pertinent positive or pertinent negative responses have been documented in the HPI. ROS Other: All systems not noted in ROS Statement are negative. Past Medical History Past Medical History: Diabetes Mellitus, Seizure Disorder Additional Past Medical History / Comment(s): SEIZURE 05/23/17, ELECTROLYTES WERE ABN. ONGOING DIARRHEA, W/ LOW K+. PAIN IN JOINTS. History of Any Multi-Drug Resistant Organisms: None Reported Past Surgical History: Cholecystectomy, Hysterectomy, Orthopedic Surgery, Tonsillectomy Additional Past Surgical History / Comment(s): BSO. Hip sx left, right knee Past Anesthesia/Blood Transfusion Reactions: Previous Problems w/ Anesthesia, Motion Sickness Additional Past Anesthesia/Blood Transfusion Reaction / Comment(s): AWAKENED DURING SURGERY X1. Past Psychological History: Depression Smoking Status: Never smoker Past Alcohol Use History: None Reported Past Drug Use History: None Reported - Past Family History Father Family Medical History: Cancer General Exam Limitations: no limitations Course Vital Signs 03/20/21 02:54 Temperature 97.8 F Pulse Rate 75 Respiratory 18 Rate Blood Pressure 142/82 O2 Sat by Pulse 99 Oximetry Disposition Clinical Impression: Grief reaction Disposition: HOME SELF-CARE Condition: Serious Instructions (If sedation given, give patient instructions): Generalized Anxiety Disorder (ED), Grief and Loss (ED) Prescriptions: Diazepam [Valium] 5 mg PO Q8H PRN 3 Days #9 tab PRN Reason: Anxiety Is patient prescribed a controlled substance at d/c from ED?: No Referrals: Manuel Castillo MD [Primary Care Provider] - 1-2 days
== END 2021-03-20 03:43 | disposition home or self-care (01) ==
LOC: EC 02:53
DX: F43.20 Adjustment disorder, unspecified (principal); E11.9 Type 2 diabetes mellitus without complications; G40.909 Epilepsy, unspecified, not intractable, without status epilepticus; Z79.4 Long term (current) use of insulin
CPT/HCPCS: 99282

== ENCOUNTER → 2021-06-16 | Outpatient (CLI) | payer OTHER ==
[2021-06-16 15:31] LABS: Basophils # (A) 0.06 X 10*3/uL (0.00-0.10); Basophils % (A) 0.8 %; Eosinophils # (A) 0.14 X 10*3/uL (0.04-0.35); Eosinophils % (A) 1.9 %; HCT 39.1 % (37.2-46.3); HGB 12.7 g/dL (12.0-15.0); Lymphocytes # (A) 1.02 X 10*3/uL (0.90-5.00); Lymphocytes % (A) 13.9 %; MCH 28.3 pg (27.0-32.0); MCHC 32.5 g/dL (32.0-37.0); MCV 87.3 fL (80.0-97.0); Mean Platelet Volume 10.6 fL (9.5-12.2); Monocytes # (A) 0.65 X 10*3/uL (0.20-1.00); Monocytes % (A) 8.8 %; Neutrophils # (A) 5.46 X 10*3/uL (1.80-7.70); Neutrophils % (A) 74.3 %; Platelet Count 236 X 10*3/uL (140-440); RBC 4.48 X 10*6/uL (4.10-5.20); RDW 14.4 % (11.5-14.5); WBC 7.35 X 10*3/uL (4.50-10.00)
[2021-06-16 17:44] LABS: African American GFR (CKD) 111.6 (60.0-200.0); Albumin 3.6 g/dL (3.80-4.90); Anion Gap 5.9 mmol/L (4.00-12.00); Calcium 8.7 mg/dL (8.7-10.3); Carbon Dioxide 27.1 mmol/L (21.6-31.8); Chol/HDL Ratio 3.1; Globulin 1.8 g/dL (1.6-3.3); LDL Cholesterol,Calculated 128.6 mg/dL (0.0-131.0); Non-African American GFR(CKD) 96.3 (60.0-200.0); Potassium 3.5 mmol/L (3.5-5.5); Total Bilirubin 0.2 mg/dL (0.2-1.2); Total Protein 5.4 g/dL (6.2-8.2); VLDL Calculation 16.4 mg/dL (5.00-40.00)
[2021-06-16 18:01] LABS: Hemoglobin A1C 11.4 % (4.0-6.0)
== END | disposition home or self-care (01) ==
LOC: LABWHC1 10:30
PROVIDERS: ATTEND Family Medicine
DX: Z00.00 Encounter for general adult medical examination without abnormal findings (principal); E10.9 Type 1 diabetes mellitus without complications; G40.909 Epilepsy, unspecified, not intractable, without status epilepticus
CPT/HCPCS: 36415; 80053; 80061; 83036; 85025

== ENCOUNTER 2022-06-06 13:33 | Emergency (ER) | payer MEDICARE, OTHER ==
[2022-06-06 13:44] VITALS: BP 134/67; PULSE 90; RESP 18; TEMP 97.9
[2022-06-06] MEDS ORDERED: KETOROLAC 15 MG/ML 1 ML VIAL IM STA (14:22)
[2022-06-06] MEDS ORDERED: DIPH,PERTUS(ACELL)TETVAC-LF 0.5 ML VIAL IM ONE (14:24)
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
--- NOTE | 2022-06-06 15:21 | XR ---
EXAMINATION TYPE: XR knee complete RT DATE OF EXAM: 06/06/2022 COMPARISON: 06/13/2021 HISTORY: Pain TECHNIQUE: Three views are submitted. FINDINGS: Diffuse osteopenia. There is marked deformity of the lateral tibial plateau which is stable from prio r exam and compatible with previous fracture. No acute fracture. Vascular calcifications noted. IMPRESSION: 1. Chronic lateral tibial plateau fracture.
--- NOTE | 2022-06-06 15:26 | XR ---
EXAMINATION TYPE: XR ribs RT w pa chest xray DATE OF EXAM: 06/06/2022 COMPARISON: NONE TECHNIQUE: PA and lateral views submitted. HISTORY: Pain FINDINGS: The lungs are clear and there is no pneumothorax, pleural effusion, or focal pneumonia. Atheroscler otic change aorta. Surgical clips right upper quadrant. Curvature of the spine with degenerative tirado ges. Calcification left upper quadrant could related to splenic artery aneurysm. Calcification right upper lobe compatible with granuloma. IMPRESSION: 1. No acute process.
== END 2022-06-06 16:01 | disposition home or self-care (01) ==
LOC: EC 13:33
DX: M25.561 Pain in right knee (principal); E11.9 Type 2 diabetes mellitus without complications; Z91.041 Radiographic dye allergy status; Z23 Encounter for immunization; Z88.5 Allergy status to narcotic agent; W19.XXXA Unspecified fall, initial encounter
CPT/HCPCS: 99284; 96372; 90471; 71101; 73562; 90715; J1885

== ENCOUNTER 2023-01-15 09:15 | Emergency (ER) | payer MEDICARE, OTHER ==
[2023-01-15 09:19] VITALS: TEMP 98
[2023-01-15] MEDS ORDERED: KETOROLAC 15 MG/ML 1 ML VIAL IM STA (10:20)
--- NOTE | 2023-01-15 10:22 | ED ---
General Adult HPI - General Chief complaint: Fall Stated complaint: fall Time Seen by Provider: 01/15/23 10:06 Source: patient, RN notes reviewed Mode of arrival: ambulatory Limitations: no limitations - History of Present Illness Initial comments: 67-year-old female with no significant past medical history presents to the emergency department with chief complaint of right rib pain. Patient reports that she fell on the steps yesterday. She denies hitting her head, loss of consciousness or anticoagulant use. She reports that she lost her footing when she fell. She denies any dizziness, lightheadedness, vision changes, chest pain, shortness of breath, cough. She is complaining of right rib pain that is tender when she touches it. She is tried Motrin with mild relief of her symptoms. - Related Data Home Medications Medication Instructions Recorded Confirmed Insulin Aspart (Niacinamide) See Protocol SQ ACHS 01/15/23 01/15/23 [Fiasp 100 Unit/ml Vial] Insulin Glargine [Lantus] 35 unit SQ HS 01/15/23 01/15/23 Previous Rx's Medication Instructions Recorded Topiramate [Topamax] 100 mg PO BID 10 Days #20 tab 02/20/21 Allergies Allergy/AdvReac Type Severity Reaction Status Date / Time codeine Allergy Nausea & Verified 01/15/23 10:02 Vomiting iodine Allergy Anaphylaxis Verified 01/15/23 10:02 Iodine and Iodide Containing Allergy Anaphylaxis Verified 01/15/23 10:02 Produc levetiracetam [From Keppra] Allergy Hallucinati Verified 01/15/23 10:02 ons Review of Systems ROS Statement: Those systems with pertinent positive or pertinent negative responses have been documented in the HPI. ROS Other: All systems not noted in ROS Statement are negative. Past Medical History Past Medical History: Diabetes Mellitus, Seizure Disorder Additional Past Medical History / Comment(s): SEIZURE 05/23/17, ELECTROLYTES WERE ABN. ONGOING DIARRHEA, W/ LOW K+. PAIN IN JOINTS. History of Any Multi-Drug Resistant Organisms: None Reported Past Surgical History: Cholecystectomy, Hysterectomy, Orthopedic Surgery, Tonsillectomy Additional Past Surgical History / Comment(s): BSO. Hip sx left, right knee Past Anesthesia/Blood Transfusion Reactions: Previous Problems w/ Anesthesia, Motion Sickness Additional Past Anesthesia/Blood Transfusion Reaction / Comment(s): AWAKENED DURING SURGERY X1. Past Psychological History: Depression Smoking Status: Never smoker Past Alcohol Use History: None Reported Past Drug Use History: None Reported - Past Family History Father Family Medical History: Cancer General Exam Limitations: no limitations General appearance: alert, in no apparent distress Head exam: Present: atraumatic, normocephalic, normal inspection Eye exam: Present: normal appearance, PERRL, EOMI. Absent: scleral icterus, conjunctival injection, periorbital swelling ENT exam: Present: normal exam, mucous membranes moist Neck exam: Present: normal inspection. Absent: tenderness, meningismus, lymphadenopathy Respiratory exam: Present: normal lung sounds bilaterally. Absent: respiratory distress, wheezes, rales, rhonchi, stridor Cardiovascular Exam: Present: regular rate, normal rhythm, normal heart sounds. Absent: systolic murmur, diastolic murmur, rubs, gallop, clicks GI/Abdominal exam: Present: soft, normal bowel sounds. Absent: distended, tenderness, guarding, rebound, rigid Extremities exam: Present: normal inspection, full ROM, normal capillary refill. Absent: tenderness, pedal edema, joint swelling, calf tenderness Back exam: Present: normal inspection Neurological exam: Present: alert, oriented X3, CN II-XII intact Psychiatric exam: Present: normal affect, normal mood Skin exam: Present: warm, dry, intact, normal color. Absent: rash Course Vital Signs 01/15/23 01/15/23 09:16 11:15 Temperature 98 F Pulse Rate 80 64 Respiratory 20 18 Rate Blood Pressure 156/82 127/80 O2 Sat by Pulse 99 99 Oximetry - Reevaluation(s) Reevaluation #1: 01/15/23 11:01 Patient reevaluated and updated on all results. She reports symptomatically status post Toradol and Lidoderm patch. Medical Decision Making - Medical Decision Making Was pt. sent in by a medical professional or institution (, PA, MARINE SAFETY OFFICER, urgent care, hospital, or group home...) When possible be specific @ -[No] Did you speak to anyone other than the patient for history (EMS, parent, family, police, friend...)? What history was obtained from this source @ -[No] Did you review nursing and triage notes (agree or disagree)? Why? @ -[I reviewed and agree with nursing and triage notes] Were old charts reviewed (outside hosp., previous admission, EMS record, old EKG, old radiological studies, urgent care reports/EKG's, group home records)? Report findings @ -[No old charts were reviewed] Differential Diagnosis (chest pain, altered mental status, abdominal pain women, abdominal pain men, vaginal bleeding, weakness, fever, dyspnea, syncope, headache, dizziness, GI bleed, back pain, seizure, CVA, palpatations, mental health, musculoskeletal)? @ -[not applicable] EKG interpreted by me (3pts min.). @ -[As above] X-rays interpreted by me (1pt min.). @ Right rib x-ray negative for any evidence of acute fracture or dislocation CT interpreted by me (1pt min.). @ -[None done] U/S interpreted by me (1pt. min.). @ -[None done] What testing was considered but not performed or refused? (CT, X-rays, U/S, labs)? Why? @ -[None] What meds were considered but not given or refused? Why? @ -[None] Did you discuss the management of the patient with other professionals (professionals i.e. , PA, MARINE SAFETY OFFICER, lab, RT, psych nurse, social sciences chair, academic physician, teacher, chief client officer, classification case manager)? Give summary @ -[No] Was smoking cessation discussed for >3mins.? @ -[No] Was critical care preformed (if so, how long)? @ -[No] Were there social determinants of health that impacted care today? How? (Homelessness, low income, unemployed, alcoholism, drug addiction, transportation, low edu. Level, literacy, decrease access to med. care, retirement, rehab)? @ -[No] Was there de-escalation of care discussed even if they declined (Discuss DNR or withdrawal of care, Hospice)? DNR status @ -[No] What co-morbidities impacted this encounter? (DM, HTN, Smoking, COPD, CAD, Cancer, CVA, ARF, Chemo, Hep., AIDS, mental health diagnosis, sleep apnea, morbid obesity)? @ -[None] Was patient admitted / discharged? Hospital course, mention meds given and route, prescriptions, significant lab abnormalities, going to OR and other pertinent info. @ Discharged. This is a 67-year-old female who presents to the emergency department with right rib pain. Patient had a thorough history and physical exam performed on the ED. Physical exam is essentially unremarkable. Heart rate regular rate and rhythm, lungs clear to auscultation bilaterally abdomen is soft and non-tender. Patient able to ambulate with a steady gait. Patient receieved toradol and lidoderm patch with symptomatic relief on the ED. . I discussed the results in detail with the patient verbalized understanding and all questions were addressed. Return precautions were discussed at length. The patient was discharged in stable condition. Case discussed with ELODIA Giordano who agrees with plan of care Undiagnosed new problem with uncertain prognosis? @ -[No] Drug Therapy requiring intensive monitoring for toxicity (Heparin, Nitro, Insulin, Cardizem)? @ -[No] Were any procedures done? @ -[No] Diagnosis/symptom? @ -right rib pain Acute, or Chronic, or Acute on Chronic? @ -R rib pain Uncomplicated (without systemic symptoms) or Complicated (systemic symptoms)? @ -uncomplicated Side effects of treatment? @ -[No] Exacerbation, Progression, or Severe Exacerbation? @ -[No] Poses a threat to life or bodily function? How? (Chest pain, [place], [place], pneumonia, PE, COPD, DKA, ARF, appy, cholecystitis, CVA, Diverticulitis, Homicidal, Suicidal, threat to staff... and all critical care pts) @ -low likelihood Disposition Clinical Impression: Fall, Rib contusion Disposition: HOME SELF-CARE Condition: Stable Instructions (If sedation given, give patient instructions): Rib Contusion (ED) Additional Instructions: These return to the nearest emergency department if symptoms of chest pain shortness of breath, cough develop. Please apply later Lidoderm patch to the area. Please take Tylenol and Motrin for the pain These return to the nearest emergency department if symptoms worsen or persist Is patient prescribed a controlled substance at d/c from ED?: No Referrals: None,Stated [Primary Care Provider] - 1-2 days Time of Disposition: 11:04
[2023-01-15] MEDS ORDERED: LIDOCAINE 5% PATCH TOPICAL SCH (10:30)
--- NOTE | 2023-01-15 10:39 | XR ---
EXAMINATION TYPE: XR ribs RT DATE OF EXAM: 01/15/2023 COMPARISON: NONE HISTORY: Pain TECHNIQUE: 4 views submitted FINDINGS: Surgical clips right upper quadrant. Visualized lung [place] are clear. Visualized rib cage is intact. IMPRESSION: No acute displaced rib fracture.
[2023-01-15 11:17] VITALS: BP 127/80; PULSE 64; RESP 18
== END 2023-01-15 11:16 | disposition home or self-care (01) ==
LOC: EC 09:15
DX: S20.219A Contusion of unspecified front wall of thorax, initial encounter (principal); E11.9 Type 2 diabetes mellitus without complications; F32.A Depression, unspecified; Z79.4 Long term (current) use of insulin; Z88.5 Allergy status to narcotic agent; Z91.018 Allergy to other foods; Z88.8 Allergy status to other drugs, medicaments and biological substances; Z88.6 Allergy status to analgesic agent; W10.9XXA Fall (on) (from) unspecified stairs and steps, initial encounter
CPT/HCPCS: 71100; 99284; 96372; J1885

== ENCOUNTER 2023-05-15 19:28 | Emergency (ER) | payer MEDICARE, OTHER ==
[2023-05-15 19:40] VITALS: BP 152/89; PULSE 77; RESP 18; TEMP 98.3
[2023-05-15 19:42] LABS: Glucose,Whole Blood 169 mg/dL (70-110)
[2023-05-15 20:18] LABS: Appearance,Urine Clear (Clear); Bilirubin,Urine Negative (Negative); Blood,Urine Negative (Negative); Color,Urine Light Yellow; Glucose,Urine (UA) 3+ (Negative); Ketones,Urine Negative (Negative); Leukocyte Esterase,Urine Moderate (Negative); Nitrite,Urine Negative (Negative); PH, Urine 6.5 (5.0-8.0); Protein,Urine Negative (Negative); Specific Gravity,Urine 1.004 (1.001-1.035); Urobilinogen,Urine <2.0 mg/dL (<2.0)
[2023-05-15 20:28] LABS: Glucose,Whole Blood 126 mg/dL (70-110)
[2023-05-15 20:39] LABS: Bacteria,Urine Rare /hpf; RBC,Urine 5 /hpf (0-5); Squamous Epithelial Cell,Urine 5 /hpf (0-4); WBC,Urine 20 /hpf (0-5)
[2023-05-15 20:42] LABS: Basophils # (A) 0.1 k/uL (0-0.2); Basophils % (A) 1 %; Eosinophils # (A) 0.1 k/uL (0-0.7); Eosinophils % (A) 1 %; HCT 38.3 % (34.0-46.0); HGB 12.4 gm/dL (11.4-16.0); Lymphocytes % (A) 13 %; MCH 27.9 pg (25.0-35.0); MCHC 32.5 g/dL (31.0-37.0); MCV 85.7 fL (80.0-100.0); Mean Platelet Volume 8.4; Monocytes # (A) 0.5 k/uL (0-1.0); Monocytes % (A) 6 %; Neutrophils % (A) 77 %; Platelet Count 170 k/uL (150-450); RBC 4.46 m/uL (3.80-5.40); RDW 13.8 % (11.5-15.5); WBC 7.8 k/uL (3.8-10.6)
[2023-05-15] MEDS ORDERED: SODIUM CHLORIDE 0.9% 500 ML 500 ML IV STA ×2 (20:52→22:00)
[2023-05-15] MEDS ORDERED: ONDANSETRON 4 MG/2 ML VIAL IVP STA (20:52)
[2023-05-15 20:53] LABS: ALT 19 U/L (4-34); AST 24 U/L (14-36); African American GFR (CKD) >90 (>60 ml/min/1.73 sqM); Albumin 3.2 g/dL (3.5-5.0); Alkaline Phosphatase 94 U/L (38-126); Anion Gap 8 mmol/L; Blood Urea Nitrogen 6 mg/dL (7-17); Carbon Dioxide 22 mmol/L (22-30); Chloride 103 mmol/L (98-107); Glucose 124 mg/dL (74-99); Non-African American GFR(CKD) >90 (>60 ml/min/1.73 sqM); Potassium 2.8 mmol/L (3.5-5.1); Sodium 133 mmol/L (137-145); Total Bilirubin 0.4 mg/dL (0.2-1.3); Total Protein 5.8 g/dL (6.3-8.2)
[2023-05-15] MEDS ORDERED: POTASSIUM CHLORIDE ER 20 MEQ TAB.ER PO STA (22:00)
[2023-05-15] MEDS ORDERED: NITROFURANTOIN MONOHYD/M-CRYST 100 MG CAP PO STA (22:00)
--- NOTE | 2023-05-15 22:21 | ED ---
General Adult HPI - General Chief complaint: Recheck/Abnormal Lab/Rx Stated complaint: Not feeling well Time Seen by Provider: 05/15/23 20:12 Source: EMS Mode of arrival: EMS Limitations: no limitations - History of Present Illness Initial comments: This patient is 67-year-old woman who presents to have evaluation related to not feeling well in general. She states that she has been feeling fatigued, having generalized weakness, having nausea and a couple episodes of vomiting. Patient states that her blood sugar has been running higher than usual for her. She states she has been compliant with her medications. She has not noted definite signs of infection, no fever or chills. No congestion, cough, dyspnea. No chest pain, diaphoresis. Patient has not noted change in urination or bowel movements. -: days(s) Severity scale (1-10): 0 Consistency: constant Improves with: none Worsens with: none Associated Symptoms: nausea/vomiting, weakness Treatments Prior to Arrival: none - Related Data Home Medications Medication Instructions Recorded Confirmed Insulin Aspart (Niacinamide) See Protocol SQ ACHS 01/15/23 01/15/23 [Fiasp 100 Unit/ml Vial] Insulin Glargine [Lantus] 35 unit SQ HS 01/15/23 01/15/23 Previous Rx's Medication Instructions Recorded Topiramate [Topamax] 100 mg PO BID 10 Days #20 tab 02/20/21 Nitrofurantoin Monohyd/M-Cryst 100 mg PO Q12HR #6 cap 05/15/23 [Macrobid] Ondansetron Odt [Zofran ODT] 4 mg PO Q8HR PRN #10 tab 05/15/23 Potassium Chloride ER [K-Dur 20] 20 meq PO BID #10 tab 05/15/23 Allergies Allergy/AdvReac Type Severity Reaction Status Date / Time codeine Allergy Nausea & Verified 05/15/23 19:40 Vomiting iodine Allergy Anaphylaxis Verified 05/15/23 19:40 Iodine and Iodide Containing Allergy Anaphylaxis Verified 05/15/23 19:40 Produc levetiracetam [From Keppra] Allergy Hallucinati Verified 05/15/23 19:40 ons Review of Systems ROS Statement: Those systems with pertinent positive or pertinent negative responses have been documented in the HPI. ROS Other: All systems not noted in ROS Statement are negative. Constitutional: Reports: weakness. Denies: fever, chills Eyes: Denies: vision change ENT: Denies: throat pain, congestion Respiratory: Denies: cough, dyspnea Cardiovascular: Reports: palpitations. Denies: chest pain, edema, syncope Gastrointestinal: Reports: nausea, vomiting. Denies: abdominal pain, diarrhea, constipation, hematemesis, melena, hematochezia Genitourinary: Denies: dysuria, frequency, hematuria Musculoskeletal: Denies: back pain Skin: Denies: rash Neurological: Denies: headache, weakness Past Medical History Past Medical History: Diabetes Mellitus, Seizure Disorder Additional Past Medical History / Comment(s): SEIZURE 05/23/17, ELECTROLYTES WERE ABN. ONGOING DIARRHEA, W/ LOW K+. PAIN IN JOINTS. History of Any Multi-Drug Resistant Organisms: None Reported Past Surgical History: Cholecystectomy, Hysterectomy, Orthopedic Surgery, Tonsillectomy Additional Past Surgical History / Comment(s): BSO. Hip sx left, right knee Past Anesthesia/Blood Transfusion Reactions: Previous Problems w/ Anesthesia, Motion Sickness Additional Past Anesthesia/Blood Transfusion Reaction / Comment(s): AWAKENED DURING SURGERY X1. Past Psychological History: Depression Smoking Status: Never smoker Past Alcohol Use History: None Reported Past Drug Use History: None Reported - Past Family History Father Family Medical History: Cancer General Exam Limitations: no limitations General appearance: alert, in no apparent distress Head exam: Present: atraumatic, normocephalic Eye exam: Present: normal appearance. Absent: scleral icterus, conjunctival injection ENT exam: Present: mucous membranes dry Neck exam: Present: normal inspection Respiratory exam: Present: normal lung sounds bilaterally. Absent: respiratory distress, wheezes, rales, rhonchi, stridor Cardiovascular Exam: Present: regular rate, normal rhythm, normal heart sounds. Absent: systolic murmur, diastolic murmur, rubs, gallop GI/Abdominal exam: Present: soft. Absent: distended, tenderness, guarding, rebound, rigid, mass Extremities exam: Present: normal inspection, normal capillary refill. Absent: pedal edema, calf tenderness Back exam: Present: normal inspection. Absent: CVA tenderness (R), CVA tenderness (L) Neurological exam: Present: alert Skin exam: Present: warm, dry, intact, normal color. Absent: rash Course Vital Signs 05/15/23 19:37 Temperature 98.3 F Pulse Rate 77 Respiratory 18 Rate Blood Pressure 152/89 O2 Sat by Pulse 99 Oximetry EKG Findings - EKG Comments: EKG Findings:: Possible old anterior infarct. - EKG Results: EKG: interpreted by FABD, sinus rhythm (Rate 67 bpm), normal axis - Blocks, [place], Hypertrophy, ST Abn: AV and intraventricular conduction: right bundle branch block (fixed/intermittent, complete/incomplete) (Incomplete right bundle branch block) Medical Decision Making - Medical Decision Making Patient is 67-year-old woman presenting with not feeling well and also having some nausea and vomiting. The patient's physical exam is not remarkable other than mild dehydration being possible. The labs supportive of some mild degree of dehydration. The patient feeling better following IV fluid and medication. On reevaluation she would like to go home. Did encourage close follow-up and reviewed return parameters. Was pt. sent in by a medical professional or institution (, PAM, PROTECTIVE SERVICE SPECIALIST, urgent care, hospital, or senior care...) When possible be specific @ -[No] Did you speak to anyone other than the patient for history (EMS, parent, family, police, friend...)? What history was obtained from this source @ -[No] Did you review nursing and triage notes (agree or disagree)? Why? @ -[I reviewed and agree with nursing and triage notes] Were old charts reviewed (outside hosp., previous admission, EMS record, old EKG, old radiological studies, urgent care reports/EKG's, senior care records)? Report findings @ -[No old charts were reviewed] Differential Diagnosis (chest pain, altered mental status, abdominal pain women, abdominal pain men, vaginal bleeding, weakness, fever, dyspnea, syncope, he adache, dizziness, GI bleed, back pain, seizure, CVA, palpatations, mental health, musculoskeletal)? @ -[Differential Weakness: Hypoglycemia, shock, sepsis, hyponatremia, anemia, infection, [place], ETOH, adverse medicine reaction, overdose, stroke, this is not meant to be an all-inclusive list. EKG interpreted by me (3pts min.). @ -[As above] X-rays interpreted by me (1pt min.). @ -[None done] CT interpreted by me (1pt min.). @ -[None done] U/S interpreted by me (1pt. min.). @ -[None done] What testing was considered but not performed or refused? (CT, X-rays, U/S, labs)? Why? @ -[None] What meds were considered but not given or refused? Why? @ -[None] Did you discuss the management of the patient with other professionals (will rose i.e. , PA, PROTECTIVE SERVICE SPECIALIST, lab, RT, psych nurse, social media editor, applied behavior specialist, teacher, attendance officer, case maker)? Give summary @ -[No] Was smoking cessation discussed for >3mins.? @ -[No] Was critical care preformed (if so, how long)? @ -[No] Were there social determinants of health that impacted care today? How? (Homelessness, low income, unemployed, alcoholism, drug addiction, transp ortation, low edu. Level, literacy, decrease access to med. care, assisted, rehab)? @ -[No] Was there de-escalation of care discussed even if they declined (Discuss DNR or withdrawal of care, Hospice)? DNR status @ -[No] What co-morbidities impacted this encounter? (DM, HTN, Smoking, COPD, CAD, Cancer, CVA, ARF, Chemo, Hep., AIDS, mental health diagnosis, sleep apnea, morbid obesity)? @ -[Diabetes Was patient admitted / discharged? Hospital course, mention meds given and route, prescriptions, significant lab abnormalities, going to OR and other pertinent info. @ -[As above, discharged Undiagnosed new problem with uncertain prognosis? @ -[No] Drug Therapy requiring intensive monitoring for toxicity (Heparin, Nitro, Insulin, Cardizem)? @ -[No] Were any procedures done? @ -[No] Diagnosis/symptom? @ - Urinary tract infection Hypokalemia Acute, or Chronic, or Acute on Chronic? @ -[Acute Uncomplicated (without systemic symptoms) or Complicated (systemic symptoms)? @ -[Uncomplicated Side effects of treatment? @ -[No] Exacerbation, Progression, or Severe Exacerbation? @ -[No] Poses a threat to life or bodily function? How? (Chest pain, [place], [place], pneumonia, PE, COPD, DKA, ARF, appy, cholecystitis, CVA, Diverticulitis, Homicidal, Suicidal, threat to staff... and all critical care pts) @ -[No] - Lab Data Result diagrams: 05/15/23 20:27 05/15/23 20:27 Lab Results 05/15/23 05/15/23 05/15/23 Range/Units 19:40 19:58 20:26 WBC (3.8-10.6) k/uL RBC (3.80-5.40) m/uL Hgb (11.4-16.0) gm/dL Hct (34.0-46.0) % MCV (80.0-100.0) fL MCH (25.0-35.0) pg MCHC (31.0-37.0) g/dL RDW (11.5-15.5) % Plt Count (150-450) k/uL MPV Neutrophils % % Lymphocytes % % Monocytes % % Eosinophils % % Basophils % % Neutrophils # (1.3-7.7) k/uL Lymphocytes # (1.0-4.8) k/uL Monocytes # (0-1.0) k/uL Eosinophils # (0-0.7) k/uL Basophils # (0-0.2) k/uL Sodium (137-145) mmol/L Potassium (3.5-5.1) mmol/L Chloride (98-107) mmol/L Carbon Dioxide (22-30) mmol/L Anion Gap mmol/L BUN (7-17) mg/dL Creatinine (0.52-1.04) mg/dL Est GFR (CKD-EPI)AfAm (>60 ml/min/1.73 sqM) Est GFR (CKD-EPI)NonAf (>60 ml/min/1.73 sqM) Glucose (74-99) mg/dL POC Glucose (mg/dL) 169 H 126 H (70-110) mg/dL POC Glu Digital Media Director [place] Heather Lactic Ac Sepsis Rflx Plasma Lactic Acid Diogenes (0.7-2.0) mmol/L Calcium (8.4-10.2) mg/dL Total Bilirubin (0.2-1.3) mg/dL AST (14-36) U/L ALT (4-34) U/L Alkaline Phosphatase (38-126) U/L Troponin I (0.000-0.034) ng/mL Total Protein (6.3-8.2) g/dL Albumin (3.5-5.0) g/dL Urine Color Light Yellow Urine Appearance Clear (Clear) Urine pH 6.5 (5.0-8.0) Ur Specific [place] 1.004 (1.001-1.035) Urine Protein Negative (Negative) Urine Glucose (UA) 3+ H (Negative) Urine Ketones Negative (Negative) Urine Blood Negative (Negative) Urine Nitrite Negative (Negative) Urine Bilirubin Negative (Negative) Urine Urobilinogen <2.0 (<2.0) mg/dL Ur Leukocyte Esterase Moderate H (Negative) Urine RBC 5 (0-5) /hpf Urine WBC 20 H (0-5) /hpf Ur Squamous Epith Cells 5 H (0-4) /hpf Urine Bacteria Rare H (None) /hpf Acetone, Qual (Negative) 05/15/23 05/15/23 05/15/23 Range/Units 20:27 20:27 20:27 WBC 7.8 (3.8-10.6) k/uL RBC 4.46 (3.80-5.40) m/uL Hgb 12.4 (11.4-16.0) gm/dL Hct 38.3 (34.0-46.0) % MCV 85.7 (80.0-100.0) fL MCH 27.9 (25.0-35.0) pg MCHC 32.5 (31.0-37.0) g/dL RDW 13.8 (11.5-15.5) % Plt Count 170 (150-450) k/uL MPV 8.4 Neutrophils % 77 % Lymphocytes % 13 % Monocytes % 6 % Eosinophils % 1 % Basophils % 1 % Neutrophils # 6.0 (1.3-7.7) k/uL Lymphocytes # 1.0 (1.0-4.8) k/uL Monocytes # 0.5 (0-1.0) k/uL Eosinophils # 0.1 (0-0.7) k/uL Basophils # 0.1 (0-0.2) k/uL Sodium 133 L (137-145) mmol/L Potassium 2.8 L (3.5-5.1) mmol/L Chloride 103 (98-107) mmol/L Carbon Dioxide 22 (22-30) mmol/L Anion Gap 8 mmol/L BUN 6 L (7-17) mg/dL Creatinine 0.60 (0.52-1.04) mg/dL Est GFR (CKD-EPI)AfAm >90 (>60 ml/min/1.73 sqM) Est GFR (CKD-EPI)NonAf >90 (>60 ml/min/1.73 sqM) Glucose 124 H (74-99) mg/dL POC Glucose (mg/dL) (70-110) mg/dL POC Glu Digital Media Director ID Lactic Ac Sepsis Rflx Plasma Lactic Acid Diogenes 2.4 H* (0.7-2.0) mmol/L Calcium 9.0 (8.4-10.2) mg/dL Total Bilirubin 0.4 (0.2-1.3) mg/dL AST 24 (14-36) U/L ALT 19 (4-34) U/L Alkaline Phosphatase 94 (38-126) U/L Troponin I (0.000-0.034) ng/mL Total Protein 5.8 L (6.3-8.2) g/dL Albumin 3.2 L (3.5-5.0) g/dL Urine Color Urine Appearance (Clear) Urine pH (5.0-8.0) Ur Specific [place] (1.001-1.035) Urine Protein (Negative) Urine Glucose (UA) (Negative) Urine Ketones (Negative) Urine Blood (Negative) Urine Nitrite (Negative) Urine Bilirubin (Negative) Urine Urobilinogen (<2.0) mg/dL Ur Leukocyte Esterase (Negative) Urine RBC (0-5) /hpf Urine WBC (0-5) /hpf Ur Squamous Epith Cells (0-4) /hpf Urine Bacteria (None) /hpf Acetone, Qual Negative (Negative) 05/15/23 05/15/23 Range/Units 20:27 21:24 WBC (3.8-10.6) k/uL RBC (3.80-5.40) m/uL Hgb (11.4-16.0) gm/dL Hct (34.0-46.0) % MCV (80.0-100.0) fL MCH (25.0-35.0) pg MCHC (31.0-37.0) g/dL RDW (11.5-15.5) % Plt Count (150-450) k/uL MPV Neutrophils % % Lymphocytes % % Monocytes % % Eosinophils % % Basophils % % Neutrophils # (1.3-7.7) k/uL Lymphocytes # (1.0-4.8) k/uL Monocytes # (0-1.0) k/uL Eosinophils # (0-0.7) k/uL Basophils # (0-0.2) k/uL Sodium (137-145) mmol/L Potassium (3.5-5.1) mmol/L Chloride (98-107) mmol/L Carbon Dioxide (22-30) mmol/L Anion Gap mmol/L BUN (7-17) mg/dL Creatinine (0.52-1.04) mg/dL Est GFR (CKD-EPI)AfAm (>60 ml/min/1.73 sqM) Est GFR (CKD-EPI)NonAf (>60 ml/min/1.73 sqM) Glucose (74-99) mg/dL POC Glucose (mg/dL) (70-110) mg/dL POC Glu Digital Media Director ID Lactic Ac Sepsis Rflx Y Plasma Lactic Acid Diogenes (0.7-2.0) mmol/L Calcium (8.4-10.2) mg/dL Total Bilirubin (0.2-1.3) mg/dL AST (14-36) U/L ALT (4-34) U/L Alkaline Phosphatase (38-126) U/L Troponin I <0.012 (0.000-0.034) ng/mL Total Protein (6.3-8.2) g/dL Albumin (3.5-5.0) g/dL Urine Color Urine Appearance (Clear) Urine pH (5.0-8.0) Ur Specific [place] (1.001-1.035) Urine Protein (Negative) Urine Glucose (UA) (Negative) Urine Ketones (Negative) Urine Blood (Negative) Urine Nitrite (Negative) Urine Bilirubin (Negative) Urine Urobilinogen (<2.0) mg/dL Ur Leukocyte Esterase (Negative) Urine RBC (0-5) /hpf Urine WBC (0-5) /hpf Ur Squamous Epith Cells (0-4) /hpf Urine Bacteria (None) /hpf Acetone, Qual (Negative) Disposition Clinical Impression: Urinary tract infection, Hypokalemia Disposition: HOME SELF-CARE Condition: Good Instructions (If sedation given, give patient instructions): Urinary Tract Infection in Women (ED), Hypokalemia (ED) Prescriptions: Potassium Chloride ER [K-Dur 20] 20 meq PO BID #10 tab Nitrofurantoin Monohyd/M-Cryst [Macrobid] 100 mg PO Q12HR #6 cap Ondansetron Odt [Zofran ODT] 4 mg PO Q8HR PRN #10 tab PRN Reason: Nausea Is patient prescribed a controlled substance at d/c from ED?: No Referrals: Chilo Cook MD [Primary Care Provider] - 1-2 days
== END 2023-05-15 22:30 | disposition home or self-care (01) ==
LOC: EC 19:28
DX: N39.0 Urinary tract infection, site not specified (principal); E87.6 Hypokalemia; E11.9 Type 2 diabetes mellitus without complications; Z79.4 Long term (current) use of insulin; Z90.49 Acquired absence of other specified parts of digestive tract; Z88.8 Allergy status to other drugs, medicaments and biological substances; Z88.5 Allergy status to narcotic agent; Z91.041 Radiographic dye allergy status
CPT/HCPCS: 36415; 93005; 80053; 82009; 83605; 84484; 85025; 81001; 87086; 99284; 96374; 96361; J2405

== ENCOUNTER 2024-01-24 19:01 | Emergency (ER) | payer MEDICARE, OTHER ==
[2024-01-24 20:08] LABS: Appearance,Urine Clear (Clear); Bacteria,Urine Rare /hpf; Bilirubin,Urine Negative (Negative); Blood,Urine Negative (Negative); Color,Urine Colorless; Glucose,Urine (UA) 3+ (Negative); Ketones,Urine Negative (Negative); Leukocyte Esterase,Urine Small (Negative); Nitrite,Urine Negative (Negative); PH, Urine 6.5 (5.0-8.0); Protein,Urine Negative (Negative); Specific Gravity,Urine 1.005 (1.001-1.035); Squamous Epithelial Cell,Urine 3 /hpf (0-4); Urobilinogen,Urine <2.0 mg/dL (<2.0); WBC,Urine 2 /hpf (0-5)
[2024-01-24] MEDS: METOCLOPRAMIDE 5 MG/ML 2 ML VIAL IVP STA (20:20)
[2024-01-24] MEDS: KETOROLAC 15 MG/ML 1 ML VIAL IVP STA (20:21)
[2024-01-24] MEDS: SODIUM CHLORIDE 0.9% 500 ML 500 ML IV ONE (20:22)
--- NOTE | 2024-01-24 20:25 | ED ---
General Adult HPI - General Source: patient, RN notes reviewed, old records reviewed Mode of arrival: ambulatory Limitations: no limitations <Marty Juárez - Last Filed: 01/24/24 20:57> <Elizabeth Webb - Last Filed: 01/25/24 01:08> - General Chief complaint: Headache Stated complaint: headache light headed back pain Time Seen by Provider: 01/24/24 19:29 - History of Present Illness Initial comments: 68-year-old female presents with chronic daily headache over the past several weeks and months. She does follow with neurology. She states that this headache has been daily. No fever. She describes it as occipital with some neck stiffness. She states it does radiate into her bilateral upper shoulders. She denies focal numbness or weakness. Denies sudden onset. Denies chest or abdominal pain. (Marty Juárez) - Related Data Home Medications Medication Instructions Recorded Confirmed Insulin Aspart (Niacinamide) See Protocol SQ ACHS 01/15/23 01/15/23 [Fiasp 100 Unit/ml Vial] Insulin Glargine [Lantus] 35 unit SQ HS 01/15/23 01/15/23 Previous Rx's Medication Instructions Recorded Topiramate [Topamax] 100 mg PO BID 10 Days #20 tab 02/20/21 Nitrofurantoin Monohyd/M-Cryst 100 mg PO Q12HR #6 cap 05/15/23 [Macrobid] Ondansetron Odt [Zofran ODT] 4 mg PO Q8HR PRN #10 tab 05/15/23 Potassium Chloride ER [K-Dur 20] 20 meq PO BID #10 tab 05/15/23 Allergies Allergy/AdvReac Type Severity Reaction Status Date / Time codeine Allergy Nausea & Verified 01/24/24 19:16 Vomiting iodine Allergy Anaphylaxis Verified 01/24/24 19:16 Iodine and Iodide Containing Allergy Anaphylaxis Verified 01/24/24 19:16 Produc levetiracetam [From Keppra] Allergy Hallucinati Verified 01/24/24 19:16 ons Review of Systems ROS Other: All systems not noted in ROS Statement are negative. <Marty Juárez - Last Filed: 01/24/24 20:57> ROS Other: All systems not noted in ROS Statement are negative. <Elizabeth Webb - Last Filed: 01/25/24 01:08> ROS Statement: Those systems with pertinent positive or pertinent negative responses have been documented in the HPI. Past Medical History Past Medical History: Diabetes Mellitus, Seizure Disorder Additional Past Medical History / Comment(s): SEIZURE 05/23/17, ELECTROLYTES WERE ABN. ONGOING DIARRHEA, W/ LOW K+. PAIN IN JOINTS. History of Any Multi-Drug Resistant Organisms: None Reported Past Surgical History: Cholecystectomy, Hysterectomy, Orthopedic Surgery, Tonsillectomy Additional Past Surgical History / Comment(s): BSO. Hip sx left, right knee Past Anesthesia/Blood Transfusion Reactions: Previous Problems w/ Anesthesia, Motion Sickness Additional Past Anesthesia/Blood Transfusion Reaction / Comment(s): AWAKENED DURING SURGERY X1. Past Psychological History: Depression Smoking Status: Never smoker Past Alcohol Use History: None Reported Past Drug Use History: None Reported - Past Family History Father Family Medical History: Cancer <Marty Juárez N - Last Filed: 01/24/24 20:57> General Exam Limitations: no limitations General appearance: alert, in no apparent distress Head exam: Present: atraumatic, normocephalic Eye exam: Present: normal appearance, PERRL ENT exam: Present: normal exam Neck exam: Present: normal inspection. Absent: tenderness, meningismus Respiratory exam: Present: normal lung sounds bilaterally. Absent: respiratory distress, wheezes Cardiovascular Exam: Present: regular rate, normal rhythm GI/Abdominal exam: Present: soft. Absent: distended, tenderness Extremities exam: Present: normal inspection, normal capillary refill Neurological exam: Present: alert, oriented X3, CN II-XII intact. Absent: motor sensory deficit Psychiatric exam: Present: normal affect, normal mood Skin exam: Present: warm, dry, intact. Absent: cyanosis, diaphoretic <Marty Juárez - Last Filed: 01/24/24 20:57> Course Vital Signs 01/24/24 01/24/24 01/24/24 19:12 20:05 21:56 Temperature 98.0 F Pulse Rate 76 73 71 Respiratory 18 18 18 Rate Blood Pressure 144/83 122/78 117/71 O2 Sat by Pulse 100 98 97 Oximetry Medical Decision Making <Marty Juárez - Last Filed: 01/24/24 20:57> - Lab Data Result diagrams: 01/24/24 21:00 01/24/24 21:00 <Elizabeth Webb P - Last Filed: 01/25/24 01:08> - Medical Decision Making Was pt. sent in by a medical professional or institution (, PA, PLASTER MOLDER, urgent care, hospital, or correction...) When possible be specific @ -No Did you speak to anyone other than the patient for history (EMS, parent, family, police, friend...)? What history was obtained from this source @ -No Did you review nursing and triage notes (agree or disagree)? Why? @ -I reviewed and agree with nursing and triage notes Were old charts reviewed (outside hosp., previous admission, EMS record, old EKG, old radiological studies, urgent care reports/EKG's, correction records)? Report findings @ -No old charts were reviewed Differential Diagnosis (chest pain, altered mental status, abdominal pain women, abdominal pain men, vaginal bleeding, weakness, fever, dyspnea, syncope, headache, dizziness, GI bleed, back pain, seizure, CVA, palpatations, mental health, musculoskeletal)? @ -Differential Headache: Migraine, tension, cluster, carbon monoxide, central venous thrombosis, pension karma temporal arteritis, acute closure glaucoma, intercranial hemorrhage, mastoiditis, sinusitis, head injury, this is not meant to be an all-inclusive list. EKG interpreted by me (3pts min.). @ -As above X-rays interpreted by me (1pt min.). @ -None done CT interpreted by me (1pt min.). @CT brain without contrast ordered, results pending] U/S interpreted by me (1pt. min.). @ -None done What testing was considered but not performed or refused? (CT, X-rays, U/S, l abs)? Why? @ -None What meds were considered but not given or refused? Why? @ -None Did you discuss the management of the patient with other professionals (professionals i.e. , PAM, PLASTER MOLDER, lab, RT, psych nurse, social worker palliative care, representative personal service, teacher, commissioned fire officer, director of casework)? Give summary @ -No Was smoking cessation discussed for >3mins.? @ -No Was critical care preformed (if so, how long)? @ -No Were there social determinants of health that impacted care today? How? (Homelessness, low income, unemployed, alcoholism, drug addiction, transportation, low edu. Level, literacy, decrease access to med. care, long term, rehab)? @ -No Was there de-escalation of care discussed even if they declined (Discuss DNR or withdrawal of care, Hospice)? DNR status @ -No What co-morbidities impacted this encounter? (DM, HTN, Smoking, COPD, CAD, Cancer, CVA, ARF, Chemo, Hep., AIDS, mental health diagnosis, sleep apnea, morbid obesity)? @ -[Migraine Was patient admitted / discharged? Hospital course, mention meds given and route, prescriptions, significant lab abnormalities, going to OR and other pertinent info. @ -68-year-old female presenting with chronic daily headache, worsening. Laboratory testing and CT pending, care signed out to Dr. Webb at shift change. (Marty Juárez) Was patient admitted / discharged? Hospital course, mention meds given and route, prescriptions, significant lab abnormalities, going to OR and other pertinent info. @ -Discharged Care was signed out to me by Dr. Packer, 68-year-old lady with worsening daily headaches followed with neurology had occipital nerve blocks with temporary relief but persistent headaches. No imaging performed as of yet. At the time of signout labs and imaging were pending. Labs are within normal limits head CT had no acute findings. Results were discussed with patient who did report some improvement in her headache after treatment here in the ER. Patient was comfortable with plan for discharge home and continue follow-up with neurology. Undiagnosed new problem with uncertain prognosis? @ -No Drug Therapy requiring intensive monitoring for toxicity (Heparin, Nitro, Insulin, Cardizem)? @ -No Were any procedures done? @ -No Diagnosis/symptom? @ -Headaches Acute, or Chronic, or Acute on Chronic? @ -Chronic Uncomplicated (without systemic symptoms) or Complicated (systemic symptoms)? @ -Default Side effects of treatment? @ -No Exacerbation, Progression, or Severe Exacerbation? @ -No Poses a threat to life or bodily function? How? (Chest pain, USA, [place], pneumonia, PE, COPD, DKA, ARF, appy, cholecystitis, CVA, Diverticulitis, Homicidal, Suicidal, threat to staff... and all critical care pts) @ -Unlikely (Elizabeth Webb) - Lab Data Lab Results 01/24/24 01/24/24 01/24/24 Range/Units 19:55 21:00 21:00 WBC 8.5 (3.8-10.6) k/uL RBC 4.58 (3.80-5.40) m/uL Hgb 12.1 (11.4-16.0) gm/dL Hct 38.9 (34.0-46.0) % MCV 84.8 (80.0-100.0) fL MCH 26.5 (25.0-35.0) pg MCHC 31.3 (31.0-37.0) g/dL RDW 15.2 (11.5-15.5) % Plt Count 197 (150-450) k/uL MPV 9.1 Neutrophils % 72 % Lymphocytes % 19 % Monocytes % 5 % Eosinophils % 2 % Basophils % 0 % Neutrophils # 6.1 (1.3-7.7) k/uL Lymphocytes # 1.6 (1.0-4.8) k/uL Monocytes # 0.4 (0-1.0) k/uL Eosinophils # 0.1 (0-0.7) k/uL Basophils # 0.0 (0-0.2) k/uL Sodium 135 L (137-145) mmol/L Potassium 3.9 (3.5-5.1) mmol/L Chloride 107 (98-107) mmol/L Carbon Dioxide 20 L (22-30) mmol/L Anion Gap 8 mmol/L BUN 8 (7-17) mg/dL Creatinine 0.52 (0.52-1.04) mg/dL Est GFR (CKD-EPI)AfAm >90 (>60 ml/min/1.73 sqM) Est GFR (CKD-EPI)NonAf >90 (>60 ml/min/1.73 sqM) Glucose 122 H (74-99) mg/dL Calcium 9.0 (8.4-10.2) mg/dL Total Bilirubin 0.4 (0.2-1.3) mg/dL AST 34 (14-36) U/L ALT 24 (4-34) U/L Alkaline Phosphatase 78 (38-126) U/L C-Reactive Protein <0.5 (<1.0) mg/dL Total Protein 6.2 L (6.3-8.2) g/dL Albumin 3.4 L (3.5-5.0) g/dL Urine Color Colorless Urine Appearance Clear (Clear) Urine pH 6.5 (5.0-8.0) Ur Specific Letts 1.005 (1.001-1.035) Urine Protein Negative (Negative) Urine Glucose (UA) 3+ H (Negative) Urine Ketones Negative (Negative) Urine Blood Negative (Negative) Urine Nitrite Negative (Negative) Urine Bilirubin Negative (Negative) Urine Urobilinogen <2.0 (<2.0) mg/dL Ur Leukocyte Esterase Small H (Negative) Urine WBC 2 (0-5) /hpf Ur Squamous Epith Cells 3 (0-4) /hpf Urine Bacteria Rare H (None) /hpf Disposition <Marty Juárez N - Last Filed: 01/24/24 20:57> Is patient prescribed a controlled substance at d/c from ED?: No <Elizabeth Webb P - Last Filed: 01/25/24 01:08> Clinical Impression: Chronic headache Disposition: HOME SELF-CARE Condition: Stable Instructions (If sedation given, give patient instructions): Acute Headache (ED) Referrals: Harpreet Cook MD [Primary Care Provider] - 1-2 days
[2024-01-24 21:13] LABS: Basophils % (A) 0 %; Eosinophils # (A) 0.1 k/uL (0-0.7); Eosinophils % (A) 2 %; HCT 38.9 % (34.0-46.0); HGB 12.1 gm/dL (11.4-16.0); Lymphocytes # (A) 1.6 k/uL (1.0-4.8); Lymphocytes % (A) 19 %; MCH 26.5 pg (25.0-35.0); MCHC 31.3 g/dL (31.0-37.0); MCV 84.8 fL (80.0-100.0); Mean Platelet Volume 9.1; Monocytes # (A) 0.4 k/uL (0-1.0); Monocytes % (A) 5 %; Neutrophils # (A) 6.1 k/uL (1.3-7.7); Neutrophils % (A) 72 %; Platelet Count 197 k/uL (150-450); RBC 4.58 m/uL (3.80-5.40); RDW 15.2 % (11.5-15.5); WBC 8.5 k/uL (3.8-10.6)
[2024-01-24 21:25] LABS: ALT 24 U/L (4-34); AST 34 U/L (14-36); African American GFR (CKD) >90 (>60 ml/min/1.73 sqM); Albumin 3.4 g/dL (3.5-5.0); Alkaline Phosphatase 78 U/L (38-126); Anion Gap 8 mmol/L; Blood Urea Nitrogen 8 mg/dL (7-17); C Reactive Protein <0.5 mg/dL (<1.0); Carbon Dioxide 20 mmol/L (22-30); Chloride 107 mmol/L (98-107); Glucose 122 mg/dL (74-99); Non-African American GFR(CKD) >90 (>60 ml/min/1.73 sqM); Potassium 3.9 mmol/L (3.5-5.1); Sodium 135 mmol/L (137-145); Total Bilirubin 0.4 mg/dL (0.2-1.3); Total Protein 6.2 g/dL (6.3-8.2)
--- NOTE | 2024-01-24 22:06 | CT ---
EXAMINATION: CT brain wo con DATE AND TIME: 01/24/2024 9:50 PM CLINICAL INDICATION: PH[facility]; ESPOSITO TECHNIQUE: Standard departmental protocol. Total DLP: 1124.9 mGy-cm COMPARISON: 04/14/2017 FINDINGS: The calvarium is intact. There is no intracranial hemorrhage. There is no intracranial mass or mass effect. No definite new intra-axial or extra-axial attenuation defect. The paranasal sinuses, middle ear cavities, and mastoid sinus air cells are clear. The orbits are unremarkable. IMPRESSION: No acute process.
[2024-01-25 01:42] VITALS: BP 121/68; PULSE 70; RESP 14; TEMP 97.1
[2024-01-25 04:15] LABS: Erythrocyte Sedimentation Rate 15 mm/Hr (0-30)
== END 2024-01-25 01:20 | disposition home or self-care (01) ==
LOC: EC 19:01
DX: G43.909 Migraine, unspecified, not intractable, without status migrainosus (principal); Z88.5 Allergy status to narcotic agent; Z91.041 Radiographic dye allergy status; Z88.8 Allergy status to other drugs, medicaments and biological substances
CPT/HCPCS: 36415; 80053; 85652; 85025; 86140; 81001; 70450; 99284; 96374; 96375; 96361 ×5; J2765; J1885

== ENCOUNTER → 2024-08-08 | Outpatient (CLI) | payer MEDICARE, OTHER ==
--- NOTE | 2024-08-08 13:51 | MM ---
Reason for Exam: Screening (asymptomatic). Last mammogram was performed 5 year(s) and 10 month(s) ago. Patient History: Menarche at age 17. First Full-Term at age 22. Left ovary removed at age 50. Right ovary removed at age 50. Hysterectomy at age 50. Postmenopausal. Risk Values: Annette 5 year model risk: 1.4%. NCI Lifetime model risk: 4.6%. Prior Study Comparison: 08/26/2013 Bilateral Screening Mammogram, [facility]. 09/25/2018 Bilateral Screening Mammogram, [facility]. Tissue Density: The breasts are almost entirely fatty. Findings: Analyzed By CAD. Right breast: There is no suspicious group of microcalcifications or new suspicious mass. Benign-appearing calcifications right breast. Left breast: There is no suspicious group of microcalcifications or new suspicious mass. Benign-appearing calcifications left breast. Overall Assessment: Benign, BI-RAD 2 Management: Screening Mammogram of both breasts in [address] [facility] will attempt to contact patient to return for supplemental views and ultrasound if indicated. Patient should continue monthly self-breast exams. A clinical breast exam by your physician is recommended on an annual basis. This exam should not preclude additional follow-up of suspicious palpable abnormalities. Note on Annette scores and lifetime risk: 1. A Annette score greater than 3% is considered moderate risk. If this is the case, consider specialist referral to assess eligibility for a risk reducing agent. 2. If overall lifetime risk for the development of breast cancer is 20% or higher, the patient may qualify for future screening with alternating mammogram and breast MRI. [facility], , 08/08/2024 1:48 PM. Electronically signed and approved by: Marty Avery DO
== END | disposition home or self-care (01) ==
LOC: RADMAMWWP 08-06 12:40
PROVIDERS: ATTEND Family Medicine
CPT/HCPCS: 77063; 77067

== ENCOUNTER 2025-01-19 09:51 | Emergency (ER) | payer MEDICARE, OTHER ==
[2025-01-19 10:01] VITALS: RESP 18
--- NOTE | 2025-01-19 10:13 | ED ---
Fall HPI - General Chief Complaint: Fall Stated Complaint: Fall-L knee injury Time Seen by Provider: 01/19/25 10:12 Source: patient, RN notes reviewed Mode of arrival: ambulatory - History of Present Illness Initial Comments: 69-year-old female presented the ER for evaluation of a fall. Patient states last night after dark she was walking down a set of stairs. She states there are 4 stairs and at the 10th stair she accidentally missed her step and causing her to fall down 4 stairs. She states she landed on bilateral knees and her hands also braced her fall after her knee hit the ground. She is reporting most of her discomfort to her left knee. She denies any paresthesias to the upper or lower extremities. She has been taking [id number] Tylenol last dose arou nd 9 AM for pain control. She denies any head injury, loss of consciousness or blood thinner use. No dizziness, lightheadedness, chest pain or shortness of breath prior to fall. Patient denies any other injuries or complaints at this time. - Related Data Home Medications Medication Instructions Recorded Confirmed Insulin Aspart (Niacinamide) See Protocol SQ ACHS 01/15/23 01/15/23 [Fiasp 100 Unit/ml Vial] Insulin Glargine (Lantus) [Lantus] 35 unit SQ HS 01/15/23 01/15/23 Previous Rx's Medication Instructions Recorded Topiramate [Topamax] 100 mg PO BID 10 Days #20 tab 02/20/21 Nitrofurantoin Monohyd/M-Cryst 100 mg PO Q12HR #6 cap 05/15/23 [Macrobid] Ondansetron Odt [Zofran ODT] 4 mg PO Q8HR PRN #10 tab 05/15/23 Potassium Chloride ER [K-Dur 20] 20 meq PO BID #10 tab 05/15/23 Allergies Allergy/AdvReac Type Severity Reaction Status Date / Time codeine Allergy Nausea & Verified 01/19/25 10:01 Vomiting iodine Allergy Anaphylaxis Verified 01/19/25 10:01 Iodine and Iodide Containing Allergy Anaphylaxis Verified 01/19/25 10:01 Produc levetiracetam [From Keppra] Allergy Hallucinati Verified 01/19/25 10:01 ons Review of Systems ROS Statement: Those systems with pertinent positive or pertinent negative responses have been documented in the HPI. ROS Other: All systems not noted in ROS Statement are negative. Past Medical History Past Medical History: Diabetes Mellitus, Seizure Disorder Additional Past Medical History / Comment(s): SEIZURE 05/23/17, ELECTROLYTES WERE ABN. ONGOING DIARRHEA, W/ LOW K+. PAIN IN JOINTS. History of Any Multi-Drug Resistant Organisms: None Reported Past Surgical History: Cholecystectomy, Hysterectomy, Orthopedic Surgery, T onsillectomy Additional Past Surgical History / Comment(s): BSO. Hip sx left, right knee Past Anesthesia/Blood Transfusion Reactions: Previous Problems w/ Anesthesia, Motion Sickness Additional Past Anesthesia/Blood Transfusion Reaction / Comment(s): AWAKENED DURING SURGERY X1. Past Psychological History: Depression Smoking Status: Never smoker Past Alcohol Use History: None Reported Past Drug Use History: None Reported - Past Family History Father Family Medical History: Cancer General Exam Limitations: no limitations General appearance: alert, in no apparent distress Respiratory exam: Present: normal lung sounds bilaterally. Absent: respiratory distress, wheezes, rales, rhonchi, stridor Cardiovascular Exam: Present: regular rate, normal rhythm, normal heart sounds. Absent: systolic murmur, diastolic murmur, rubs, gallop, clicks Extremities exam: Present: full ROM, tenderness (Right knee lateral joint line. Mild tenderness to left patella and tibial tuberosity), normal capillary refill (2+ bilateral radial and DP pulses ), other (No anatomical snuffbox tenderness bilaterally) Neurological exam: Present: alert, oriented X3, CN II-XII intact Skin exam: Present: warm, dry, intact, normal color, abrasion (Left knee) Course Vital Signs 01/19/25 01/19/25 09:55 10:40 Temperature 97.5 F L 97.8 F Pulse Rate 85 81 Respiratory 18 18 Rate Blood Pressure 128/73 122/76 O2 Sat by Pulse 100 100 Oximetry Medical Decision Making - Medical Decision Making Was pt. sent in by a medical professional or institution (, PA, IRRIGATION EQUIPMENT REMOVER, urgent care, hospital, or intermediate...) When possible be specific @ -No Did you speak to anyone other than the patient for history (EMS, parent, family, police, friend...)? What history was obtained from this source @ -No Did you review nursing and triage notes (agree or disagree)? Why? @ -I reviewed and agree with nursing and triage notes Were old charts reviewed (outside hosp., previous admission, EMS record, old EKG, old radiological studies, urgent care reports/EKG's, intermediate records)? Report findings @ -No old charts were reviewed Differential Diagnosis (chest pain, altered mental status, abdominal pain women, abdominal pain men, vaginal bleeding, weakness, fever, dyspnea, syncope, headache, dizziness, GI bleed, back pain, seizure, CVA, palpatations, mental health, musculoskeletal)? @ -Differential Musculoskeletal: Muscular strain, contusion, ligament sprain, fracture, arthritis, septic arthritis, bursitis, cellulitis, muscle spasm, nerve compression, DVT, arterial occlusion, herpes zoster, electrolyte abnormality, tumor.... This is not meant to be in all inclusive list EKG interpreted by me (3pts min.). @ -None done X-rays interpreted by me (1pt min.). @ -Bilateral knee x-rays interpreted by me negative for acute fractures or dislocations. CT interpreted by me (1pt min.). @ -None done U/S interpreted by me (1pt. min.). @ -None done What testing was considered but not performed or refused? (CT, X-rays, U/S, labs)? Why? @ -None What meds were considered but not given or refused? Why? @ -None Did you discuss the management of the patient with other professionals (professionals i.e. , PA, IRRIGATION EQUIPMENT REMOVER, lab, RT, psych nurse, social contact worker, dope firer, teacher, senior vice president and chief information officer, case specialist)? Give summary @ -No Was smoking cessation discussed for >3mins.? @ -No Was critical care preformed (if so, how long)? @ -No Were there social determinants of health that impacted care today? How? (Homelessness, low income, unemployed, alcoholism, drug addiction, transportation, low edu. Level, literacy, decrease access to med. care, snf, rehab)? @ -No Was there de-escalation of care discussed even if they declined (Discuss DNR or withdrawal of care, Hospice)? DNR status @ -No What co-morbidities impacted this encounter? (DM, HTN, Smoking, COPD, CAD, Cancer, CVA, ARF, Chemo, Hep., AIDS, mental health diagnosis, sleep apnea, morbid obesity)? @ -None Was patient admitted / discharged? Hospital course, mention meds given and route, prescriptions, significant lab abnormalities, going to OR and other pertinent info. @ -Discharge. 69-year-old female presented the ER for evaluation of a trip and fall. Vitals within acceptable limits. Patient is neurovascularly intact and able to ambulate without difficulty. Patient has full active range of motion of bilateral upper and lower extremities. Extensor mechanism intact bilateral knees. X-rays obtained negative for acute fractures or dislocations. Upon reevaluation, patient resting comfortably on stretcher no signs of acute distress. Results discussed with patient, all questions answered. I advised [id number] ibuprofen and Tylenol for pain control outpatient. Strict return parameters discussed. Patient discharged in stable condition. Patient verbally expressed understanding agreement with care plan. Case discussed with ED attending, Dr. Juárez. Undiagnosed new problem with uncertain prognosis? @ -No Drug Therapy requiring intensive monitoring for toxicity (Heparin, Nitro, Insulin, Cardizem)? @ -No Were any procedures done? @ -No Diagnosis/symptom? @ -Fall Acute, or Chronic, or Acute on Chronic? @ -Acute Uncomplicated (without systemic symptoms) or Complicated (systemic symptoms)? @ -Uncomplicated Side effects of treatment? @ -No Exacerbation, Progression, or Severe Exacerbation? @ -No Poses a threat to life or bodily function? How? (Chest pain, USA, [place], pneumonia, PE, COPD, DKA, ARF, appy, cholecystitis, CVA, Diverticulitis, Homicidal, Suicidal, threat to staff... and all critical care pts) @ -No - Radiology Data Radiology results: report reviewed, image reviewed Disposition Clinical Impression: Fall Disposition: HOME SELF-CARE Condition: Stable Instructions (If sedation given, give patient instructions): Fall Prevention for Older Adults (ED) Additional Instructions: Follow-up with PCP. Return to the ER for any new or worsening concerns. Is patient prescribed a controlled substance at d/c from ED?: No Referrals: Cal Goodwin MD [Primary Care Provider] - 1-2 days Time of Disposition: 10:38
--- NOTE | 2025-01-19 10:29 | XR ---
EXAMINATION TYPE: XR knee complete bilateral DATE OF EXAM: 01/19/2025 CLINICAL INDICATION: Female, 69 years old with history of fall, pain TECHNIQUE: 3 views of the bilateral knees were obtained. COMPARISON: Right knee x-ray June 06, 2022. FINDINGS: No acute displaced fracture is seen bilaterally. Osseous structures are somewhat deminerali zed. Persistent loss of height of the lateral aspect lateral tibial plateau in the right knee prepped product of old trauma. Symmetric moderate medial tibiofemoral compartment narrowing of both knees. M oderate to severe narrowing patellofemoral compartment bilaterally is seen. There is mild to moderate spurring in the left knee noted at this level. Significant Posterior arteriovascular calcification i s present bilaterally. IMPRESSION: There is no acute fracture or dislocation in either knee. [facility], , 01/19/2025 10:26 AM
[2025-01-19 10:42] VITALS: BP 122/76; PULSE 81; TEMP 97.8
== END 2025-01-19 10:40 | disposition home or self-care (01) ==
LOC: EC 09:51
DX: S80.212A Abrasion, left knee, initial encounter (principal); M25.561 Pain in right knee; Z88.5 Allergy status to narcotic agent; Z91.041 Radiographic dye allergy status; Z88.8 Allergy status to other drugs, medicaments and biological substances; W10.9XXA Fall (on) (from) unspecified stairs and steps, initial encounter
CPT/HCPCS: 99283

== ENCOUNTER 2025-02-23 20:25 | Emergency (ER) | payer MEDICARE ==
--- NOTE | 2025-02-23 21:36 | ED ---
Female Urogenital HPI - General Chief complaint: Skin/Abscess/Foreign Body Stated complaint: UTI Time Seen by Provider: 02/23/25 21:12 Source: patient, RN notes reviewed, old records reviewed Mode of arrival: ambulatory Limitations: no limitations - History of Present Illness Initial comments: This is a 69-year-old female she presents today for evaluation of abdominal pain groin pain, recent antibiotic for urinary tract infection, since she has had significant groin redness swelling itching getting worse for 2 days now. Symptoms are severe, no other complaints. Patient does have rash to both thighs and pubic area MD Complaint: pelvic pain -: days(s) Location: perineum, suprapubic Radiation: suprapubic Severity: moderate Severity scale (1-10): 7 Quality: other (Itching) Consistency: constant Improves with: none Worsens with: none Patient : No Associated Symptoms: denies other symptoms - Related Data Home Medications Medication Instructions Recorded Confirmed Insulin Aspart (Niacinamide) See Protocol SQ ACHS 01/15/23 01/15/23 [Fiasp 100 Unit/ml Vial] Insulin Glargine (Lantus) [Lantus] 35 unit SQ HS 01/15/23 01/15/23 Previous Rx's Medication Instructions Recorded Topiramate [Topamax] 100 mg PO BID 10 Days #20 tab 02/20/21 Nitrofurantoin Monohyd/M-Cryst 100 mg PO Q12HR #6 cap 05/15/23 [Macrobid] Ondansetron Odt [Zofran ODT] 4 mg PO Q8HR PRN #10 tab 05/15/23 Potassium Chloride ER [K-Dur 20] 20 meq PO BID #10 tab 05/15/23 Nystatin 100,000 Unit/gm Powd 1 applic TOPICAL BID #15 gram 02/23/25 [Mycostatin Powder] Allergies Allergy/AdvReac Type Severity Reaction Status Date / Time codeine Allergy Nausea & Verified 02/23/25 20:52 Vomiting iodine Allergy Anaphylaxis Verified 02/23/25 20:52 Iodine and Iodide Containing Allergy Anaphylaxis Verified 02/23/25 20:52 Produc levetiracetam [From Keppra] Allergy Hallucinati Verified 02/23/25 20:52 ons Review of Systems ROS Statement: Those systems with pertinent positive or pertinent negative responses have been documented in the HPI. ROS Other: All systems not noted in ROS Statement are negative. Past Medical History Past Medical History: Diabetes Mellitus, Seizure Disorder Additional Past Medical History / Comment(s): SEIZURE 05/23/17, ELECTROLYTES WERE ABN. ONGOING DIARRHEA, W/ LOW K+. PAIN IN JOINTS. History of Any Multi-Drug Resistant Organisms: None Reported Past Surgical History: Cholecystectomy, Hysterectomy, Orthopedic Surgery, Tonsillectomy Additional Past Surgical History / Comment(s): BSO. Hip sx left, right knee Past Anesthesia/Blood Transfusion Reactions: Previous Problems w/ Anesthesia, Motion Sickness Additional Past Anesthesia/Blood Transfusion Reaction / Comment(s): AWAKENED DURING SURGERY X1. Past Psychological History: Depression Smoking Status: Never smoker Past Alcohol Use History: None Reported Past Drug Use History: None Reported - Past Family History Father Family Medical History: Cancer General Exam - General Exam Comments Initial Comments: Rash of tinea both inner thighs and suprapubic area Limitations: no limitations General appearance: alert, in no apparent distress Head exam: Present: atraumatic, normocephalic, normal inspection Eye exam: Present: normal appearance, PERRL, EOMI. Absent: scleral icterus, conjunctival injection, periorbital swelling ENT exam: Present: normal exam, mucous membranes moist Neck exam: Present: normal inspection. Absent: tenderness, meningismus, lymphadenopathy Respiratory exam: Present: normal lung sounds bilaterally. Absent: respiratory distress, wheezes, rales, rhonchi, stridor Cardiovascular Exam: Present: regular rate, normal rhythm, normal heart sounds. Absent: systolic murmur, diastolic murmur, rubs, gallop, clicks GI/Abdominal exam: Present: soft, normal bowel sounds. Absent: distended, tenderness, guarding, rebound, rigid Extremities exam: Present: normal inspection, full ROM, normal capillary refill. Absent: tenderness, pedal edema, joint swelling, calf tenderness Back exam: Present: normal inspection Neurological exam: Present: alert, oriented X3, CN II-XII intact Psychiatric exam: Present: normal affect, normal mood Skin exam: Present: warm, dry, intact, normal color. Absent: rash Course Vital Signs 02/23/25 20:49 Temperature 98.4 F Pulse Rate 91 Respiratory 16 Rate Blood Pressure 153/79 O2 Sat by Pulse 99 Oximetry - Reevaluation(s) Reevaluation #1: 02/23/25 22:25 Medical records reviewed Reevaluation #2: 02/23/25 22:25 Patient's symptoms improved Reevaluation #3: 02/23/25 22:25 Patient informed of results questions answered Reevaluation #4: Was pt. sent in by a medical professional or institution ([facility], [employer]S PROCESSOR, urgent care, hospital, or prison...) When possible be specific @ -no Did you speak to anyone other than the patient for history (EMS, parent, family, police, friend...)? What history was obtained from this source @ -no Did you review nursing and triage notes (agree or disagree)? Why? @ -agree Are old charts reviewed (outside hosp., previous admission, EMS record, old EKG, old radiological studies, urgent care reports/EKG's, prison records)? Report findings @ -yes Differential Diagnosis (chest pain, altered mental status, abdominal pain women, abdominal pain men, vaginal bleeding, weakness, fever, dyspnea, syncope, headache, dizziness, GI bleed, back pain, seizure, CVA, palpatations, mental health, musculoskeletal)? @ -prior EKG interpreted by me (3pts min.). @ -yes X-rays interpreted by me (1pt min.). @ -yes negative for acute disease CT interpreted by me (1pt min.). @ -no U/S interpreted by me (1pt. min.). @ -no What testing was considered but not performed or refused? (CT, X-rays, U/S, labs)? Why? @ -none What meds were considered but not given or refused? Why? @ -none Did you discuss the management of the patient with other professionals (professionals i.e. , P[facility], [employer]S PROCESSOR, lab, RT, psych nurse, social worker psychiatric, journeyman meat cutter, teacher, administrative hearing officer, pillowcase sewer)? Give summary @ -no Was smoking cessation discussed for >3mins.? @ -no Was critical care preformed (if so, how long)? @ -no Were there social determinants of health that impacted care today? How? (Homelessness, low income, unemployed, alcoholism, drug addiction, transportation, low edu. Level, literacy, decrease access to med. care, nursing home, rehab)? @ -none Was there de-escalation of care discussed even if they declined (Discuss DNR or withdrawal of care, Hospice)? DNR status @ -no What co-morbidities impacted this encounter? (DM, HTN, Smoking, COPD, CAD, C ancer, CVA, ARF, Chemo, Hep., AIDS, mental health diagnosis, sleep apnea, morbid obesity)? @ -none Was patient admitted / discharged? Hospital course, mention meds given and route, prescriptions, significant lab abnormalities, going to OR and other pertinent info. @ - Undiagnosed new problem with uncertain prognosis? @ -no Drug Therapy requiring intensive monitoring for toxicity (Heparin, Nitro, Insulin, Cardizem)? @ -no Were any procedures done? @ -no Diagnosis/symptom? @ - Acute, or Chronic, or Acute on Chronic? @ -Acute Uncomplicated (without systemic symptoms) or Complicated (systemic symptoms)? @ -Complicated Side effects of treatment? @ -no Exacerbation, Progression, or Severe Exacerbation? @ -exacerbation Poses a threat to life or bodily function? How? (Chest pain, USA, NV, pneumonia, PE, COPD, DKA, ARF, appy, cholecystitis, CVA, Diverticulitis, Homicidal, Suicidal, threat to staff... and all critical care pts) @ -yes Reevaluation #5: Differential Abdominal Pain Women: Appendicitis, Cholecystitis, diverticulosis, ischemic bowel, pancreatitis, hepatitis, UTI, gastroenteritis, AAA, incarcerated hernia, bowel obstruction, constipation, inflammatory bowel, hepatitis, peptic ulcer disease, splenic infarction, perforated viscus, vulvitis, ovarian torsion, PID, kidney stone, placenta abruption, this is not meant to be an all-inclusive list Medical Decision Making - Medical Decision Making 69 female with significant coronary pain rash, tinea cruris given medication here in the ER and outpatient treatment Disposition Clinical Impression: Tinea cruris Disposition: HOME SELF-CARE Condition: Good Instructions (If sedation given, give patient instructions): Yeast Infection (ED), Jock Itch (ED), Skin Yeast Infection (ED) Prescriptions: Nystatin 100,000 Unit/gm Powd [Mycostatin Powder] 1 applic TOPICAL BID #15 gram Is patient prescribed a controlled substance at d/c from ED?: No Referrals: Cal Goodwin MD [Primary Care Provider] - 1-2 days Time of Disposition: 22:00
[2025-02-23] MEDS: FLUCONAZOLE 100 MG TAB PO ONE (21:55)
[2025-02-23] MEDS: NYSTATIN 100,000 UNIT/GM POWD 15 GM TOPICAL STA (21:56)
[2025-02-23 22:30] LABS: Appearance,Urine Clear (Clear); Bilirubin,Urine Negative (Negative); Blood,Urine Negative (Negative); Color,Urine Colorless; Glucose,Urine (UA) 4+ (Negative); Ketones,Urine Negative (Negative); Leukocyte Esterase,Urine Negative (Negative); Nitrite,Urine Negative (Negative); Protein,Urine Negative (Negative); Urobilinogen,Urine <2.0 mg/dL (<2.0)
[2025-02-23 22:32] VITALS: BP 164/83; PULSE 75; RESP 18; TEMP 97.4
[2025-02-23 22:54] LABS: Specific Gravity,Urine 1.005 (1.001-1.035)
== END 2025-02-23 22:14 | disposition home or self-care (01) ==
LOC: EC 20:25
DX: B35.6 Tinea cruris (principal); Z88.8 Allergy status to other drugs, medicaments and biological substances; Z88.5 Allergy status to narcotic agent; Z91.041 Radiographic dye allergy status
CPT/HCPCS: 81003; 99283